=== PATIENT | female | born 1945 | race Caucasian/White ===

== ENCOUNTER → 2022-01-21 13:11 | Outpatient (CLI) | payer MEDICARE, OTHER, SELFPAY ==
[2022-01-21 13:59] LABS: INR 3.4 (0.9-1.3); Prothrombin Time 39.4 SECONDS (10.1-12.7)
== END ==
PROVIDERS: Referring Provider Internal Medicine; Visit Provider Internal Medicine
DX: I48.11 Longstanding persistent atrial fibrillation (principal); I26.99 Other pulmonary embolism without acute cor pulmonale
CPT/HCPCS: 36415; 85610

== ENCOUNTER → 2022-02-17 15:36 | Outpatient (CLI) | payer MEDICARE, OTHER, SELFPAY ==
[2022-02-17 16:57] LABS: INR 3.2 (0.9-1.3); Prothrombin Time 36.9 SECONDS (10.1-12.7)
== END ==
PROVIDERS: PCP Internal Medicine; Referring Provider Internal Medicine; Visit Provider Internal Medicine
DX: I48.11 Longstanding persistent atrial fibrillation (principal); I26.99 Other pulmonary embolism without acute cor pulmonale
CPT/HCPCS: 36415; 85610

== ENCOUNTER 2022-09-14 11:52 | Inpatient (IN) | payer MEDICARE, OTHER, MEDICAID, SELFPAY ==
[2022-09-14] VITALS (12 sets, daily range): BP systolic 125–180; BP diastolic 58–80; PULSE 60–79; RESP 18–23; TEMP 36.1–36.6; O2SAT 94–97; BMI 29.9; BMI 29.1
--- NOTE | 2022-09-14 12:14 | DI.RAD.S_ITS ---
PROCEDURE: XR CHEST 1V INDICATIONS: Flu like symptoms TECHNIQUE: One view of the chest was acquired. COMPARISON: [facility], CR, XR CHEST 2 VIEWS, 07/21/2022, 17:52. [facility], CT, CT CERVICAL SPINE WO CON, 09/14/2022, 13:01. [facility], CR, XR CHEST 1 VIEW, 07/06/2020, 16:29. FINDINGS: Surgical changes and devices: None. Lungs and pleura: Lung volumes are low. There are diffuse interstitial radiopacities bilaterally. There may be consolidative radiopacities at the left lung base posterior to the cardiac shadow. No pleural effusion or pneumothorax. Mediastinum: Mediastinal contours appear normal. Heart size is mildly enlarged. Bones and chest wall: No suspicious bony lesions. Overlying soft tissues appear unremarkable. IMPRESSION: Diffuse interstitial radiopacities and cardiomegaly suggesting pulmonary edema. Questionable consolidation at the left lung base. Dictated by: Maggy Mercado M.D. on 09/14/2022 at 13:09 Approved by: Maggy Mercado M.D. on 09/14/2022 at 13:10
--- NOTE | 2022-09-14 12:15 | DI.RAD.S_ITS ---
PROCEDURE: XR HIP W PEL IF DONE LT 2V INDICATIONS: fall on thinners TECHNIQUE: AP pelvis with lateral view(s) of the left hip(s). COMPARISON: [facility], CR, XR FEMUR LT MIN 2V, 09/14/2022, 12:17. FINDINGS: Bones: There is questionable cortical irregularity along the anterior aspect of the left femoral neck visualized on the cross-table view. There is limited visualization of the femoral neck on the AP view. The more inferior left femoral fracture is not characterized on this study. Right hip arthroplasty is grossly intact. Soft tissues: The visualized bowel gas pattern is normal. No suspicious soft tissue calcifications. IMPRESSION: Poor characterization of the left femoral neck. Questionable cortical irregularity on the cross-table view. Fracture cannot be excluded. If further characterization is warranted, consider additional views or CT of the pelvis. Dictated by: Maggy Mercado M.D. on 09/14/2022 at 13:10 Approved by: Maggy Mercado M.D. on 09/14/2022 at 13:12
--- NOTE | 2022-09-14 12:15 | DI.CT.S_ITS ---
PROCEDURE: CT HEAD/BRAIN WO CON INDICATIONS: fall on thinners TECHNIQUE: Noncontrast 4.5 mm thick angled axial sections acquired from the foramen magnum to the vertex, with coronal and sagittal reformats. For radiation dose reduction, the following was used: automated exposure control, adjustment of mA and/or kV according to patient size. COMPARISON: None. FINDINGS: Image quality: Excellent. CSF spaces: Basal cisterns are patent. No extra-axial fluid collections. The ventricles are symmetric in size and shape. Brain: No intracranial bleeds or masses. There is cerebral volume loss for age, with resultant ventricular and sulcal prominence. There are periventricular and deep white matter chronic small vessel ischemic changes. Low attenuation is present in the right frontal lobe consistent with prior infarction/trauma. There is intracranial internal carotid artery atherosclerosis. Skull and face: Calvarium and visualized facial bones appear intact, without suspicious lesions. Sinuses: Visualized sinuses and mastoids are clear. IMPRESSION: 1. No acute intracranial process. 2. Moderate atrophy and chronic microvascular ischemic changes. Dictated by: Kasia Garza M.D. on 09/14/2022 at 13:12 Approved by: Kasia Garza M.D. on 09/14/2022 at 13:14
--- NOTE | 2022-09-14 12:15 | DI.CT.S_ITS ---
PROCEDURE: CT CERVICAL SPINE WO CON INDICATIONS: fall on thinners TECHNIQUE: Noncontrast 3 mm thick sections acquired from the skull base to the T4 level. Sagittal and coronal reformats were then constructed. For radiation dose reduction, the following was used: automated exposure control, adjustment of mA and/or kV according to patient size. COMPARISON: None. FINDINGS: Image quality: Excellent. Bones: No fractures or dislocations. Visualized superior ribs are intact. There is trace retrolisthesis of C5 on C6, trace anterolisthesis of C7 on T1. There is severe disc space narrowing at C4-5, C5-6 and C6-7. Anterior osteophytes are present. Multilevel uncovertebral arthropathy is present. Soft tissues: Prevertebral soft tissues are normal in thickness. No paravertebral hematomas. No apical pneumothoraces. IMPRESSION: Multilevel degenerative changes without visualized fracture. Dictated by: Kasia Garza M.D. on 09/14/2022 at 13:14 Approved by: Kasia Garza M.D. on 09/14/2022 at 13:16
--- NOTE | 2022-09-14 12:18 | ED_ITS ---
HPI - Fall General Chief Complaint: Fall Stated Complaint: GLF, mod trauma Time Seen by Provider: 09/14/22 12:10 Source: patient and EMS Mode of arrival: EMS Limitations: no limitations History of Present Illness HPI Narrative: This is a 77-year-old female with history of benign carcinoid tumor of the lung, AFib, diabetes, hypertension prior strokes, anticoagulated on warfarin. Patient states she was getting dressed today she is doing to make things at once and had her socks on slipped and fell backwards striking back of her head on a table and landing on her left hip. Patient states she is pain in her left she denies headache currently, no neck pain, no back pain, no chest pain or shortness of breath. She denies any nausea or vomiting. Denies any loss consciousness. She is chronic urinary incontinence and sometimes retention. Patient states chronic diarrhea. No new changes to her stool. No new changes to her urine. Patient denies numbness or tingling in her extremities. She states she received pain medication EN route which was helpful. She has had hip replacement and a cardiac stent no allergies reported. Former smoker, occasional alcohol, no illicit. She is accompanied by her son who augments her history. Related Data Home Medications Medication Instructions Recorded Confirmed [place] 3-6-9 1,200 mg PO BEDTIME 09/14/22 09/14/22 acetaminophen 500 mg capsule 500 mg PO DAILY 09/14/22 09/14/22 acidophilus 100 million 2 cap PO BID 09/14/22 09/14/22 cell-pectin, citrus 10 mg capsule amlodipine 5 mg tablet (Norvasc) 7.5 mg PO BEDTIME 09/14/22 09/14/22 aripiprazole 10 mg tablet (Abilify) 10 mg PO BEDTIME 09/14/22 09/14/22 atorvastatin 40 mg tablet (Lipitor) 40 mg PO BEDTIME 09/14/22 09/14/22 biotin 10,000 mcg capsule 10,000 mcg PO BEDTIME 09/14/22 09/14/22 calcium carb-vit D3-minerals 600 1 tab PO DAILY 09/14/22 09/14/22 mg calcium-400 unit tablet cholecalciferol (vitamin D3) 50 50 mcg PO DAILY 09/14/22 09/14/22 mcg (2,000 unit) tablet cranberry extract 250 mg tablet 500 mg PO DAILY 09/14/22 09/14/22 d-mannose 500 mg capsule 1,000 mg PO BID 09/14/22 09/14/22 dextromethorphan-guaifenesin 10 1 tab-cap PO BID PRN Cough 09/14/22 09/14/22 mg-200 mg capsule (Coricidin HBP Chest Congestion-Cough) diclofenac sodium 1 % topical gel 2 g topical QID PRN Pain (Scale 09/14/22 09/14/22 (Voltaren Arthritis Pain) Score 4-6) donepezil 10 mg tablet (Aricept) 10 mg PO BEDTIME 09/14/22 09/14/22 estradiol 0.01% (0.1 mg/gram) 1 g vaginal 3XW 09/14/22 09/14/22 vaginal cream (Estrace) glucosamine-chondroitin 250 mg-200 1 tab PO DAILY 09/14/22 09/14/22 mg tablet (Osteo Bi-Flex) guaifenesin 600 mg tablet, 600 mg PO BID PRN Cough 09/14/22 09/14/22 extended release 12 hr (Mucinex) hydrocodone 5 mg-acetaminophen 325 1 tab PO Q8H PRN Pain, Moderate 09/14/22 09/14/22 mg tablet lisinopril 10 mg tablet (Zestril) 10 mg PO BEDTIME 09/14/22 09/14/22 lisinopril 10 mg tablet (Zestril) 20 mg PO DAILY 09/14/22 09/14/22 magnesium sulfate (bulk) 100 % 1 applic miscellaneous 3XW PRN 09/14/22 09/14/22 crystals (Epsom Salt) Pain (Scale Score 4-6) melatonin 3 mg capsule 3 mg PO BEDTIME 09/14/22 09/14/22 melatonin 5 mg capsule 5 mg PO BEDTIME 09/14/22 09/14/22 metoprolol succinate 25 mg 25 mg PO DAILY 09/14/22 09/14/22 tablet,extended release 24 hr (Toprol XL) multivitamin 1 tab PO DAILY 09/14/22 09/14/22 phenyleph-shark liver 1 applic topical Q6H PRN Itching 09/14/22 09/14/22 iqm-grdxfe-tca rectal cream polyethylene glycol 3350 17 gram 17 g PO DAILY PRN Constipation 09/14/22 09/14/22 oral powder packet (Miralax) quetiapine 300 mg tablet (Seroquel) 300 mg PO BEDTIME 09/14/22 09/14/22 sennosides 8.6 mg tablet (Senokot) 8.6 mg PO DAILY PRN Constipation 09/14/22 09/14/22 tea tree oil 100 % topical 1 ea topical BID 09/14/22 09/14/22 topiramate 100 mg tablet (Topamax) 100 mg PO BEDTIME 09/14/22 09/14/22 turmeric 400 mg capsule 2,000 mg PO DAILY 09/14/22 09/14/22 warfarin 2.5 mg tablet 2.5 mg PO WEEKLY 09/14/22 09/14/22 warfarin 5 mg tablet 5 mg PO USEASDIRECTD 09/14/22 09/14/22 Allergies Allergy/AdvReac Type Severity Reaction Status Date / Time No Known Drug Allergies Allergy Verified 09/14/22 12:03 Review of Systems Review of Systems ROS Unobtainable: All systems reviewed & are unremarkable except as noted in HPI and below Patient History Social History household members: other Smoking Status: Former smoker alcohol intake: current Smoking Status: Former smoker alcohol intake frequency: 0-2 drinks per day Substance Use Type: does not use Exam Narrative Exam Narrative: GEN: Patient appears in mild distress. HEAD: No evidence of trauma, no raccoon/[place] sign. NECK: Nontender, painless range of motion, trachea midline Positive for Nexus criteria, no midline line tenderness, positive for distracting injury, no altered mental status, neuro deficit, recent EtOH. EYES: PERRLA, EOMI ENT: External inspection normal, trachea is midline, TM's are normal no hemotypanum, Nares are clear, no septal hematoma, no dental or oral injury, airway is normal and with normal occlusion, No bony tenderness RESP: Chest is nontender and has symmetric movement, no ecchymosis, breath sounds are normal no crackles, wheezes or rales CVS: Heart sounds are normal, no murmur noted, No JVD. ABG/GI: Nontender, soft, normal bowel sounds, no distention, no organomegaly, pelvic rock is negative NEURO: Oriented AOx3, neuro is grossly intact, sensation and motor is normal all 4 extremities moving, cranial nerves II through XII are intact, GCS is 15 PSYCH: Normal mood and affect SKIN: Intact, warm and dry, no crepitus and without decubitus BACK: No CVA tenderness, no vertebral tenderness, no step-off's, no crepitus EXT: atraumatic except for left hip is obviously shortened and foot externally rotated, lower left leg is nontender to palpation with no other deformity or bony tenderness. Patient does not have any bony tenderness to the upper extremities or right lower extremity. Hips are nontender, no pedal edema, normal color and temperature, normal range of motion of extremities with normal tendon exam, 2+ pulses in all four extremities Initial Vital Signs Initial Vital Signs: Vital Signs Temperature 98 F 09/14/22 12:03 Pulse Rate 60 09/14/22 12:03 Respiratory Rate 18 09/14/22 12:03 Blood Pressure 125/58 L 09/14/22 12:03 Pulse Oximetry 94 09/14/22 12:03 Oxygen Delivery Method 09/14/22 12:03 Scores GCS Nba coma scale eye opening: Spontaneous Nba coma scale verbal response: Orientated [place] coma scale motor response: Obey commands [place] coma scale total score: 15 Nexus Score for C-Spine Focal Neurologic deficit present: No Midline spinal tenderness present: No Altered level of conciousness present: No Intoxication present: No Distracting Injury Present: Yes Nexus Criteria for C-spine: 1 Course Orders Ordered: ED Orders 09/14/22 12:00 Complete Blood Count AUTO DIFF Stat Lactate (Lactic Acid) Stat Partial Thromboplastin Time Stat Prothrombin Time INR Stat 09/14/22 12:14 XR chest 1V Stat 09/14/22 12:15 CT cervical spine wo con Stat CT head/brain wo con Stat XR hip w pel if done LT 2V Stat 09/14/22 12:47 XR femur LT min 2V Stat 09/14/22 13:00 A1C [Hemoglobin A1C% w Est Avg Glu] Urgent 09/14/22 13:15 COVID19 -Nasal RAPID/Pre-Proc Stat 09/14/22 13:22 Type and Screen Stat 09/14/22 13:50 Comprehensive Metabolic Panel Stat 09/14/22 17:52 Urinalysis and Microscopic Stat 09/15/22 05:00 BMP [Basic Metabolic Panel] DAILY CBC Auto Diff [Complete Blood Count AUTO DIFF] DAILY Prothrombin Time INR DAILY 09/16/22 05:00 BMP [Basic Metabolic Panel] DAILY CBC Auto Diff [Complete Blood Count AUTO DIFF] DAILY Prothrombin Time INR DAILY 09/17/22 05:00 BMP [Basic Metabolic Panel] DAILY CBC Auto Diff [Complete Blood Count AUTO DIFF] DAILY Prothrombin Time INR DAILY 09/18/22 05:00 Prothrombin Time INR DAILY 09/19/22 05:00 Prothrombin Time INR DAILY Acetaminophen (Acetaminophen 325 Mg Tablet) 650 mg PO Q6H PRN PRN Reason: Fever/Mild Pain (1-3) Amlodipine Besylate (Amlodipine 5 Mg Tablet) 7.5 mg PO BEDTIME [facility] Aripiprazole (Aripiprazole 10 Mg Tablet) 10 mg PO BEDTIME [place] Atorvastatin Calcium (Atorvastatin 20 Mg Tablet) 40 mg PO BEDTIME [place] Bisacodyl (Bisacodyl 5 Mg Tablet) 10 mg PO DAILY PRN PRN Reason: Constipation Donepezil HCl (Donepezil 5 Mg Tablet) 10 mg PO BEDTIME [place] Hydromorphone HCl (Hydromorphone 0.5 Mg Inj) 0.5 mg IV Q4H PRN PRN Reason: Pain, Moderate (4-6) Last Admin: 09/14/22 15:32 Dose: 0.5 mg Documented By: ALMA Melatonin (Melatonin 3 Mg Tablet) 3 mg PO BEDTIME [facility] Metoprolol Succinate (Metoprolol Er 25 Mg Tablet) 25 mg PO DAILY [facility] Naloxone HCl (Naloxone 0.4 Mg/Ml Vial) 0.2 mg IV Q2MIN PRN PRN Reason: Opiate Reversal Oxycodone HCl (Oxycodone Ir 5 Mg Tablet) 5 mg PO Q4HR PRN PRN Reason: Pain, Moderate (4-6) Last Admin: 09/14/22 17:34 Dose: 5 mg Documented By: ALMA Polyethylene Glycol (Polyethylene Glycol 3350 17 Gm Powd.Pack) 17 gm PO DAILY PRN PRN Reason: Constipation Quetiapine Fumarate (Quetiapine 100 Mg Tablet) 300 mg PO BEDTIME [place] Sennosides (Sennosides 8.6 Mg Tablet) 8.6 mg PO BID PRN PRN Reason: Constipation Topiramate (Topiramate 100 Mg Tablet) 100 mg PO BEDTIME [place] Discontinued Medications Fentanyl (Fentanyl 100 Mcg/2 Ml Inj) 50 mcg IV Q1H PRN PRN Reason: Pain, Severe (7-10) Last Admin: 09/14/22 13:12 Dose: 50 mcg Documented By: RB Melatonin (Melatonin 3 Mg Tablet) 6 mg PO BEDTIME PRN PRN Reason: Insomnia Oxycodone HCl (Oxycodone Ir 10 Mg Tablet) 10 mg PO Q4HR PRN PRN Reason: Pain, Severe (7-10) Consultations Consultation #1: Dr. Whitt, orthopedic surgery: Reviewed patient is on warfarin INR is 2.8, plan for surgery probably tomorrow. Patient will need surgical repair likely tomorrow. Can do [place] traction if we have device available. Discussed patient is currently neurovascularly intact intact Consultation #2: Dr. Clements, hospitalist: Will speak with Dr. Whitt to see if he is accepting as it beating physician or consulting. Time: 13:24 Vital Signs Vital signs: Vital Signs - 8 hr 09/14/22 12:03 09/14/22 12:10 09/14/22 13:02 Temperature 98 F Pulse Rate 60 63 71 Respiratory Rate 18 Blood Pressure 125/58 L Pulse Oximetry 94 96 94 Oxygen Delivery Method Room Air 09/14/22 13:26 09/14/22 13:26 09/14/22 13:30 Temperature Pulse Rate 79 Respiratory Rate Blood Pressure 176/80 H 170/76 H Pulse Oximetry 96 Oxygen Delivery Method 09/14/22 13:30 09/14/22 13:35 09/14/22 13:35 Temperature Pulse Rate 78 73 Respiratory Rate 19 23 Blood Pressure 155/68 H Pulse Oximetry 96 96 Oxygen Delivery Method 09/14/22 13:40 09/14/22 13:40 09/14/22 13:45 Temperature Pulse Rate 67 69 Respiratory Rate 18 19 Blood Pressure 156/72 H Pulse Oximetry 95 96 Oxygen Delivery Method 09/14/22 13:45 Temperature Pulse Rate Respiratory Rate Blood Pressure 133/73 Pulse Oximetry Oxygen Delivery Method MDM - Fall Lab Data 09/14/22 12:00 09/14/22 12:00 Labs: Lab Results 09/14/22 09/14/22 09/14/22 Range/Units 12:00 12:00 12:00 WBC 4.8 (4.5-11.0) X10^3/uL RBC 4.40 (4.0-5.2) X10^6/uL Hgb 13.0 (12.0-16.0) g/dL Hct 40.1 (36-46) % MCV 91.3 (80-100) fL MCH 29.6 (26-34) PG MCHC 32.5 (30-36) % RDW 15.1 H (11.6-14.8) % Plt Count 169 (150-400) X10^3/uL Neut % (Auto) 75.1 H (50-75) % Lymph % (Auto) 16.8 L (25-40) % [place] % (Auto) 6.0 (3-14) % Eos % (Auto) 1.2 L (2-4) % Baso % (Auto) 0.9 (0-2) % Neut # (Auto) 3600 (6271-5252) /uL Lymph # (Auto) 800 L (0152-5679) /uL [place] # (Auto) 300 (0-900) /uL Eos # (Auto) 100 (0-450) /uL Baso # (Auto) 0 (0-100) /uL PT 32.7 H (10.1-12.7) SECONDS INR 2.8 H (0.9-1.3) APTT 33 (26-36) SECONDS Sodium (137-145) mmol/L Potassium (3.4-5.1) mmol/L Chloride (98-107) mmol/L Carbon Dioxide (22-32) mmol/L BUN (7-17) mg/dL Creatinine (0.52-1.04) mg/dL Estimated GFR (>60) mL/min BUN/Creatinine Ratio (6-22) Glucose (80-110) mg/dL Hemoglobin A1c (4.0-6.0) % Lactate 1.7 (0.7-2.1) mmol/L Calcium (8.4-10.2) mg/dL Total Bilirubin (0.2-1.3) mg/dL AST (14-36) IU/L ALT (<35) IU/L Alkaline Phosphatase (38-126) U/L Total Protein (6.3-8.2) g/dL Albumin (3.5-5.0) g/dL Globulin (1.7-4.1) g/dL Albumin/Globulin Ratio (1.0-2.8) SARS-CoV-2 (PCR) (Negative) Blood Type Antibody Screen 09/14/22 09/14/22 09/14/22 Range/Units 13:00 13:15 13:22 WBC (4.5-11.0) X10^3/uL RBC (4.0-5.2) X10^6/uL Hgb (12.0-16.0) g/dL Hct (36-46) % MCV (80-100) fL MCH (26-34) PG MCHC (30-36) % RDW (11.6-14.8) % Plt Count (150-400) X10^3/uL Neut % (Auto) (50-75) % Lymph % (Auto) (25-40) % [place] % (Auto) (3-14) % Eos % (Auto) (2-4) % Baso % (Auto) (0-2) % Neut # (Auto) (7764-9897) /uL Lymph # (Auto) (0331-9460) /uL [place] # (Auto) (0-900) /uL Eos # (Auto) (0-450) /uL Baso # (Auto) (0-100) /uL PT (10.1-12.7) SECONDS INR (0.9-1.3) APTT (26-36) SECONDS Sodium (137-145) mmol/L Potassium (3.4-5.1) mmol/L Chloride (98-107) mmol/L Carbon Dioxide (22-32) mmol/L BUN (7-17) mg/dL Creatinine (0.52-1.04) mg/dL Estimated GFR (>60) mL/min BUN/Creatinine Ratio (6-22) Glucose (80-110) mg/dL Hemoglobin A1c 5.6 (4.0-6.0) % Lactate (0.7-2.1) mmol/L Calcium (8.4-10.2) mg/dL Total Bilirubin (0.2-1.3) mg/dL AST (14-36) IU/L ALT (<35) IU/L Alkaline Phosphatase (38-126) U/L Total Protein (6.3-8.2) g/dL Albumin (3.5-5.0) g/dL Globulin (1.7-4.1) g/dL Albumin/Globulin Ratio (1.0-2.8) SARS-CoV-2 (PCR) Negative (Negative) Blood Type O Positive Antibody Screen Negative 09/14/22 Range/Units 13:50 WBC (4.5-11.0) X10^3/uL RBC (4.0-5.2) X10^6/uL Hgb (12.0-16.0) g/dL Hct (36-46) % MCV (80-100) fL MCH (26-34) PG MCHC (30-36) % RDW (11.6-14.8) % Plt Count (150-400) X10^3/uL Neut % (Auto) (50-75) % Lymph % (Auto) (25-40) % [place] % (Auto) (3-14) % Eos % (Auto) (2-4) % Baso % (Auto) (0-2) % Neut # (Auto) (2918-9107) /uL Lymph # (Auto) (6399-5153) /uL [place] # (Auto) (0-900) /uL Eos # (Auto) (0-450) /uL Baso # (Auto) (0-100) /uL PT (10.1-12.7) SECONDS INR (0.9-1.3) APTT (26-36) SECONDS Sodium 141 (137-145) mmol/L Potassium 5.0 (3.4-5.1) mmol/L Chloride 110 H (98-107) mmol/L Carbon Dioxide 24 (22-32) mmol/L BUN 22 H (7-17) mg/dL Creatinine 0.92 (0.52-1.04) mg/dL Estimated GFR > 60 (>60) mL/min BUN/Creatinine Ratio 23.9 H (6-22) Glucose 111 H (80-110) mg/dL Hemoglobin A1c (4.0-6.0) % Lactate (0.7-2.1) mmol/L Calcium 8.7 (8.4-10.2) mg/dL Total Bilirubin 0.6 (0.2-1.3) mg/dL AST 25 (14-36) IU/L ALT 20 (<35) IU/L Alkaline Phosphatase 110 (38-126) U/L Total Protein 6.6 (6.3-8.2) g/dL Albumin 3.6 (3.5-5.0) g/dL Globulin 3.0 (1.7-4.1) g/dL Albumin/Globulin Ratio 1.2 (1.0-2.8) SARS-CoV-2 (PCR) (Negative) Blood Type Antibody Screen Imaging Data CT scan - head: Radiologist's Impression: [address] [address] [address] Scan Report Signed Patient: Saleem Graham MR#: [id number] : 1945 Acct:[id number] Age/Sex: 77 / F Date of Service: 09/14/22 Loc: ED Accession Number: [id number] ?? Procedure: CT head/brain wo con Ordering Provider: Patricia Stanford D.O. PROCEDURE:? CT HEAD/BRAIN WO CON ? INDICATIONS:? fall on thinners ? TECHNIQUE:? Noncontrast 4.5 mm thick angled axial sections acquired from the foramen magnum to the vertex, with coronal and sagittal reformats.? For radiation dose reduction, the following was used:? automated exposure control, adjustment of mA and/or kV according to patient size.? ? COMPARISON:? None. ? FINDINGS:? Image quality:? Excellent.? ? CSF spaces:? Basal cisterns are patent.? No extra-axial fluid collections.? The ventricles are symmetric in size and shape.? ? Brain:? No intracranial bleeds or masses.? There is cerebral volume loss for age, with resultant ventricular and sulcal prominence.? There are periventricular and deep white matter chronic small vessel ischemic changes.? Low attenuation is present in the right frontal lobe consistent with prior infarction/trauma.? There is intracranial internal carotid artery atherosclerosis.? ? Skull and face:? Calvarium and visualized facial bones appear intact, without suspicious lesions.? ? Sinuses:? Visualized sinuses and mastoids are clear.? ? IMPRESSION:? ? 1. No acute intracranial process. ? 2. Moderate atrophy and chronic microvascular ischemic changes. ? ? ? Dictated by: Kasia Garza M.D. on 09/14/2022 at 13:12 ? ? Approved by: Kasia Garza M.D. on 09/14/2022 at 13:14?? CT - cervical spine: Radiologist's Impression: Close Femur X-Ray (Signed) Maggy Mercado - 09/14/22 Hip X-Ray (Signed) Maggy Mercado - 09/14/[address] (Signed) Kasia Garza - 09/14/[address] (Signed) Keyon Garzaley - 09/14/22 Chest X-Ray (Signed) Maggy Mercado - 09/14/22 Launch?Image [address] [address] [address] Scan Report Signed Patient: Saleem Graham MR#: [id number] : 1945 Acct:[id number] Age/Sex: 77 / F Date of Service: 09/14/22 Loc: ED Accession Number: [id number] ?? Procedure: CT cervical spine wo con Ordering Provider: Patricia Stanford D.O. PROCEDURE:? CT CERVICAL SPINE WO CON ? INDICATIONS:? fall on thinners ? TECHNIQUE:? Noncontrast 3 mm thick sections acquired from the skull base to the T4 level.? Sagittal and coronal reformats were then constructed.? For radiation dose reduction, the following was used:? automated exposure control, adjustment of mA and/or kV according to patient size.? ? COMPARISON:? None. ? FINDINGS:? Image quality:? Excellent.? ? Bones:? No fractures or dislocations.? Visualized superior ribs are intact.? T here is trace retrolisthesis of C5 on C6, trace anterolisthesis of C7 on T1.? There is severe disc space narrowing at C4-5, C5-6 and C6-7.? Anterior osteophytes are present.? Multilevel uncovertebral arthropathy is present. ? Soft tissues:? Prevertebral soft tissues are normal in thickness.? No para vertebral hematomas.? No apical pneumothoraces.? ? ? IMPRESSION:? ? Multilevel degenerative changes without visualized fracture. ? Dictated by: Kasia Garza M.D. on 09/14/2022 at 13:14 ? ? Approved by: Kasia Garza M.D. on 09/14/2022 at 13:16?? Chest x-ray: Radiologist's Impression: [address] [address] XRay Report Signed Patient: Saleem Graham MR#: [id number] : 1945 Acct:[id number] Age/Sex: 77 / F Date of Service: 09/14/22 Loc: ED Accession Number: [id number] ?? Procedure: XR chest 1V Ordering Provider: Patricia Stanford D.O. PROCEDURE:? XR CHEST 1V ? INDICATIONS:? Flu like symptoms ? TECHNIQUE:? One view of the chest was acquired.? ? COMPARISON:? [facility], CR, XR CHEST 2 VIEWS, 07/21/2022, 17:52.? [facility], CT, CT CERVICAL SPINE WO CON, 09/14/2022, 13:01.? [facility], CR, XR CHEST 1 VIEW, 07/06/2020, 16:29. ? FINDINGS:? ? Surgical changes and devices:? None.? ? Lungs and pleura:? Lung volumes are low.? There are diffuse interstitial radiopacities bilaterally.? There may be consolidative radiopacities at the left lung base posterior to the cardiac shadow.? No pleural effusion or pneumothorax. ? Mediastinum:? Mediastinal contours appear normal.? Heart size is mildly enlarged. ? Bones and chest wall:? No suspicious bony lesions.? Overlying soft tissues appear unremarkable.? ? IMPRESSION:? Diffuse interstitial radiopacities and cardiomegaly suggesting pulmonary edema. Questionable consolidation at the left lung base.? ? Dictated by: Maggy Mercado M.D. on 09/14/2022 at 13:09 ? ? Approved by: Maggy Mercado M.D. on 09/14/2022 at 13:10?? Extremity x-ray #1: Radiologist's Impression: [address] [address] XRay Report Signed Patient: Saleem Graham MR#: [id number] : 1945 Acct:[id number] Age/Sex: 77 / F Date of Service: 09/14/22 Loc: ED Accession Number: [id number] ?? Procedure: XR hip w pel if done LT 2V Ordering Provider: Patricia Stanford D.O. PROCEDURE:? XR HIP W PEL IF DONE LT 2V ? INDICATIONS:? fall on thinners ? TECHNIQUE:? AP pelvis with lateral view(s) of the left hip(s).? ? COMPARISON:? [facility], CR, XR FEMUR LT MIN 2V, 09/14/2022, 12:17. ? FINDINGS:? ? Bones:? There is questionable cortical irregularity along the anterior aspect of the left femoral neck visualized on the cross-table view.? There is limited visualization of the femoral neck on the AP view.? The more inferior left femoral fracture is not characterized on this study.? Right hip arthroplasty is grossly intact. ? Soft tissues:? The visualized bowel gas pattern is normal.? No suspicious soft tissue calcifications.? ? ? IMPRESSION:? Poor characterization of the left femoral neck.? Questionable cortical irregularity on the cross-table view.? Fracture cannot be excluded.? If further characterization is warranted, consider additional views or CT of the pelvis. ? Dictated by: Maggy Mercado M.D. on 09/14/2022 at 13:10 ? ? Approved by: Maggy Mercado M.D. on 09/14/2022 at 13:12?? Extremity x-ray #2: Radiologist's Impression: [place] [address] XRay Report Signed Patient: Saleem Graham MR#: [id number] : 1945 Acct:[id number] Age/Sex: 77 / F Date of Service: 09/14/22 Loc: ED Accession Number: [id number] ?? Procedure: XR femur LT min 2V Ordering Provider: Patricia Stanford D.O. PROCEDURE:? XR FEMUR LT MIN 2V ? INDICATIONS:? Fall with leg shortening. ? TECHNIQUE:? 2 views of the femur were acquired.? ? COMPARISON:? None. ? FINDINGS:? ? Bones:? There is an angulated, displaced, impacted left femoral fracture.? The distal fracture fragment is displaced approximately 9 cm with respect to the proximal fracture fragment.? There is approximately 37? angulation at the apex of the fracture. ? Soft tissues:? No suspicious soft tissue calcifications or masses.? ? IMPRESSION:? Angulated, displaced, impacted left femoral diaphyseal fracture. ? ? Dictated by: Maggy Mercado M.D. on 09/14/2022 at 13:13 ? ? Approved by: Maggy Mercado M.D. on 09/14/2022 at 13:13?? [facility] Narrative Medical decision making narrative: This is a 77-year-old female with what she describes as a mechanical ground level fall. Left lower extremity is currently shortened and rotated. Patient is on warfarin states she did hit her head so head CT C-spine were obtained she likely has distracting injury. These are negative, hip x-ray questionable but patient clearly has a femur fracture that is displaced. Patient is neurova scularly intact she has plantar flexion extension. 2+ dorsalis pedis pulse with sensation to light touch in her lower extremity on the left side. Patient's labs show hemoglobin of 13, INR is elevated at 2.8 secondary her warfarin. Patient was type and screened. Patient's creatinine is normal at 0.92 with chloride of 110 BUN 22 sodium 141 potassium of 5, glucose is 111 with otherwise normal LFTs. Patient is COVID negative. Patient does not appear to have any other injuries appreciated. Spoke with Orthopedic surgery, Dr. Whitt who accepts for admission likely OR tomorrow secondary to elevated INR, discussed if we have traction available can place. After discussion with nursing staff [facility] nursing staff often remove this if patient is uncomfortable so decision was made not to put it in place if they are going to remove it later today as patient does not have surgery until tomorrow. Also spoke with the hospitalist Dr. Clements who accepts for inpatient admission for medical management with consultation by Orthopedic surgery. Discharge Plan Departure Patient Disposition: Admitted As Inpatient Clinical Impression: Fall, Elevated INR Closed femur fracture Qualifiers: Encounter type: initial encounter Fracture alignment: displaced Laterality: left Admit Date/Time: 09/14/22 13:50 Admit Provider: Yosvany Clements
[2022-09-14 12:24] LABS: Add Manual Diff / Slide Review NO; Basophils Absolute Auto 0 /uL (0-100); Basophils Percent Auto 0.9 % (0-2); Eosinophils Absolute Auto 100 /uL (0-450); Eosinophils Percent Auto 1.2 % (2-4); Hematocrit 40.1 % (36-46); Lymphocytes Absolute Auto 800 /uL (1100-4500); Lymphocytes Percent Auto 16.8 % (25-40); Mean Corpuscular HGB Conc 32.5 % (30-36); Mean Corpuscular Hemoglobin 29.6 PG (26-34); Mean Corpuscular Volume 91.3 fL (80-100); Monocytes Absolute Auto 300 /uL (0-900); Neutrophils Absolute Auto 3600 /uL (1500-7000); Neutrophils Percent Auto 75.1 % (50-75); Platelet Count 169 X10^3/uL (150-400); Red Cell Distribution Width 15.1 % (11.6-14.8); White Blood Cell Count 4.8 X10^3/uL (4.5-11.0)
[2022-09-14 12:33] LABS: INR 2.8 (0.9-1.3); PTT Partial Thromboplastin Tim 33 SECONDS (26-36); Prothrombin Time 32.7 SECONDS (10.1-12.7)
[2022-09-14 12:34] LABS: Lactate (Lactic Acid) 1.7 mmol/L (0.7-2.1)
--- NOTE | 2022-09-14 12:47 | DI.RAD.S_ITS ---
PROCEDURE: XR FEMUR LT MIN 2V INDICATIONS: Fall with leg shortening. TECHNIQUE: 2 views of the femur were acquired. COMPARISON: None. FINDINGS: Bones: There is an angulated, displaced, impacted left femoral fracture. The distal fracture fragment is displaced approximately 9 cm with respect to the proximal fracture fragment. There is approximately 37? angulation at the apex of the fracture. Soft tissues: No suspicious soft tissue calcifications or masses. IMPRESSION: Angulated, displaced, impacted left femoral diaphyseal fracture. Dictated by: Maggy Mercado M.D. on 09/14/2022 at 13:13 Approved by: Maggy Mercado M.D. on 09/14/2022 at 13:13
[2022-09-14] MEDS: fentaNYL 100 MCG/2 ML INJ 50 MCG IV (13:12)
--- NOTE | 2022-09-14 13:29 | PM.HP.1 ---
History of Present Illness History of Present Illness Date Patient Seen: 09/14/22 Chief complaint: GLF, mod trauma Narrative: Chen Graham is a 77-year-old female with past medical history of atrial fibrillation on warfarin who presents with left femur fracture following ground level fall. Patient states she was wearing slippery socks while doing laudry and slipped on the floor, landing on her left side. Is now having excruciating pain. XR of right hip in ED showed left displaced femur fracture. Patient's INR 2.8 so ortho deferred surgery until likely one more day. Patient currently states her pain is well controlled after pain medication. She has no other complaints. Denies CP, SOB, NV, abd pain or diarrhea. Patient History Family & Social History Safety & Behavioral: Feels Safe in Current Yes Environment Been Physically Hurt or No Threatened By a Person Tobacco & Substance use: Smoking Status Former smoker alcohol intake frequency 0-2 drinks per day Substance Use Type does not use Meds Home Medications and Allergies Home Medications Medication Instructions Recorded Confirmed Type [place] 3-6-9 1,200 mg PO BEDTIME 09/14/22 09/14/22 History acetaminophen 500 mg capsule 500 mg PO DAILY 09/14/22 09/14/22 History acidophilus 100 million 2 cap PO BID 09/14/22 09/14/22 History cell-pectin, citrus 10 mg capsule amlodipine 5 mg tablet (Norvasc) 7.5 mg PO BEDTIME 09/14/22 09/14/22 History aripiprazole 10 mg tablet (Abilify) 10 mg PO BEDTIME 09/14/22 09/14/22 History atorvastatin 40 mg tablet (Lipitor) 40 mg PO BEDTIME 09/14/22 09/14/22 History biotin 10,000 mcg capsule 10,000 mcg PO BEDTIME 09/14/22 09/14/22 History calcium carb-vit D3-minerals 600 1 tab PO DAILY 09/14/22 09/14/22 History mg calcium-400 unit tablet cholecalciferol (vitamin D3) 50 50 mcg PO DAILY 09/14/22 09/14/22 History mcg (2,000 unit) tablet cranberry extract 250 mg tablet 500 mg PO DAILY 09/14/22 09/14/22 History d-mannose 500 mg capsule 1,000 mg PO BID 09/14/22 09/14/22 History dextromethorphan-guaifenesin 10 1 tab-cap PO BID PRN Cough 09/14/22 09/14/22 History mg-200 mg capsule (Coricidin HBP Chest Congestion-Cough) diclofenac sodium 1 % topical gel 2 g topical QID PRN Pain (Scale 09/14/22 09/14/22 History (Voltaren Arthritis Pain) Score 4-6) donepezil 10 mg tablet (Aricept) 10 mg PO BEDTIME 09/14/22 09/14/22 History estradiol 0.01% (0.1 mg/gram) 1 g vaginal 3XW 09/14/22 09/14/22 History vaginal cream (Estrace) glucosamine-chondroitin 250 mg-200 1 tab PO DAILY 09/14/22 09/14/22 History mg tablet (Osteo Bi-Flex) guaifenesin 600 mg tablet, 600 mg PO BID PRN Cough 09/14/22 09/14/22 History extended release 12 hr (Mucinex) hydrocodone 5 mg-acetaminophen 325 1 tab PO Q8H PRN Pain, Moderate 09/14/22 09/14/22 History mg tablet lisinopril 10 mg tablet (Zestril) 10 mg PO BEDTIME 09/14/22 09/14/22 History lisinopril 10 mg tablet (Zestril) 20 mg PO DAILY 09/14/22 09/14/22 History magnesium sulfate (bulk) 100 % 1 applic miscellaneous 3XW PRN 09/14/22 09/14/22 History crystals (Epsom Salt) Pain (Scale Score 4-6) melatonin 3 mg capsule 3 mg PO BEDTIME 09/14/22 09/14/22 History melatonin 5 mg capsule 5 mg PO BEDTIME 09/14/22 09/14/22 History metoprolol succinate 25 mg 25 mg PO DAILY 09/14/22 09/14/22 History tablet,extended release 24 hr (Toprol XL) multivitamin 1 tab PO DAILY 09/14/22 09/14/22 History phenyleph-shark liver 1 applic topical Q6H PRN Itching 09/14/22 09/14/22 History [id number] rectal cream polyethylene glycol 3350 17 gram 17 g PO DAILY PRN Constipation 09/14/22 09/14/22 History oral powder packet (Miralax) quetiapine 300 mg tablet (Seroquel) 300 mg PO BEDTIME 09/14/22 09/14/22 History sennosides 8.6 mg tablet (Senokot) 8.6 mg PO DAILY PRN Constipation 09/14/22 09/14/22 History tea tree oil 100 % topical 1 ea topical BID 09/14/22 09/14/22 History topiramate 100 mg tablet (Topamax) 100 mg PO BEDTIME 09/14/22 09/14/22 History turmeric 400 mg capsule 2,000 mg PO DAILY 09/14/22 09/14/22 History warfarin 2.5 mg tablet 2.5 mg PO WEEKLY 09/14/22 09/14/22 History warfarin 5 mg tablet 5 mg PO USEASDIRECTD 09/14/22 09/14/22 History Allergies Allergy/AdvReac Type Severity Reaction Status Date / Time No Known Drug Allergies Allergy Verified 09/14/22 12:03 Review of Systems Review of Systems Narrative: All other systems reviewed with the patient and are negative unless otherwise stated. Exam Vital Signs (past 8 hours): - 09/14/22 12:03 Temperature 98 F Pulse Rate 60 Respiratory Rate 18 Blood Pressure 125/58 L Pulse Oximetry 94 Oxygen Delivery Method Room Air Oxygen Delivery Method Room Air Narrative Exam Narrative: GEN: no acute distress, sleepy from pain medication HEENT: moist mucous membranes, PERRL NECK: trachea midline, no JVD CV: regular rate and rhythm, no murmurs PULM: clear bilaterally ABD: soft, nontender, nondistended, no organomegaly EXT: left leg shortened and externally rotated NEURO: awake, alert, oriented, no focal deficits Objective Labs 09/14/22 12:00 09/14/22 13:22 Labs: Laboratory Results - last 24 hr 09/14/22 09/14/22 09/14/22 12:00 12:00 12:00 WBC 4.8 RBC 4.40 Hgb 13.0 Hct 40.1 MCV 91.3 MCH 29.6 MCHC 32.5 RDW 15.1 H Plt Count 169 Neut % (Auto) 75.1 H Lymph % (Auto) 16.8 L [place] % (Auto) 6.0 Eos % (Auto) 1.2 L Baso % (Auto) 0.9 Neut # (Auto) 3600 Lymph # (Auto) 800 L [place] # (Auto) 300 Eos # (Auto) 100 Baso # (Auto) 0 PT 32.7 H INR 2.8 H APTT 33 Lactate 1.7 Assessment & Plan Assessment & Plan narrative: # ground level fall resulting in left mid-shaft displaced femur fracture -Dr. Whitt ortho consulting and will take for surgery on 09/15 -NPO at midnight -hold warfarin -oxycodone and Dilaudid as needed for pain # chronic atrial fibrillation -holding warfarin due to pending surgery -daily INR checks # bipolar disorder -continue home seroquel, abilify and topamax # HTN, chronic -continue home amlodipine, holding lisinopril due to borderline high K # HLD, chronic -continue home statin # vascular dementia -continue home donepezil Code status is DNR. COVID negative. DVT prophylaxis with SCDs. Proxy is miya Resendiz. I have reviewed home meds and used all available resources to reconcile the home meds. This patient will be admitted as inpatient and will require greater than 2 midnights of hospital time to treat left hip fracture. Time Spent With Patient Critical Care time: I spent a total of [] minutes of critical care time on this patient's care today; this time is exclusive of procedural time.
[2022-09-14 14:07] LABS: Hemoglobin A1C% w Est Avg Glu 5.6 % (4.0-6.0)
[2022-09-14 14:11] LABS: Alanine Aminotransferase 20 IU/L (<35); Albumin 3.6 g/dL (3.5-5.0); Albumin Globulin Ratio 1.2 (1.0-2.8); Alkaline Phosphatase 110 U/L (38-126); Aspartate Aminotransferase 25 IU/L (14-36); BUN Creatinine Ratio 23.9 (6-22); Bilirubin Total 0.6 mg/dL (0.2-1.3); Blood Urea Nitrogen 22 mg/dL (7-17); Calcium 8.7 mg/dL (8.4-10.2); Carbon Dioxide 24 mmol/L (22-32); Chloride 110 mmol/L (98-107); Estimated Glomerular Filt Rate > 60 mL/min (>60); Glucose 111 mg/dL (80-110); HEMOLYSIS < 15 (0-50); Sodium 141 mmol/L (137-145); Total Protein 6.6 g/dL (6.3-8.2)
[2022-09-14 14:25] LABS: COVID19 -Nasal RAPID Negative (Negative)
[2022-09-14] MEDS: HYDROMORPHONE 0.5 MG INJ IV (15:32)
--- NOTE | 2022-09-14 16:03 | PC.NURSE ---
Addendum entered by Veronica Law R.N. 09/14/22 18:55: Patient just medicated with oxycodone and she is getting sleepy. She ate 95% of her dinner and drank some tea. Son will be back later. Her son only wants her to have certain visitors. Tammie Pete, Colleen Lanier. Anyone else we need to call her son Astrid de la fuente [phone]. Original Note: Patient admitted with fx to [facility] Given 0.5mg of iv dilaudid and she states that she is feeling better. Patient refused to have a rivera catheter at this time and is using a pure wick. She states that she is usually incontinent. Fancis is alert and oriented x3, but can be forgetful. She lives in an adult family home called [facility]. Her son is her contact and POA. Friend in room with patient at this time who is a volunteer here. She is not voicing any needs or concerns at this time.
--- NOTE | 2022-09-14 17:24 | P.CONS_ITS ---
History of Present Illness Consult details Date Patient Seen: 09/14/22 Time Patient Seen: 17:25 Chief complaint: GLF, mod trauma Narrative: 77-year-old female who slipped and fell earlier today landing on her left side. Patient had quite a bit of pain and was unable to ambulate and was brought into the emergency room. Does state she hit her head but denies any loss of consciousness. Patient has atrial fibrillation is on Coumadin for that. Patient has a history of right total hip. Meds Home Medications and Allergies Home Medications Medication Instructions Recorded Confirmed Type [place] 3-6-9 1,200 mg PO BEDTIME 09/14/22 09/14/22 History acetaminophen 500 mg capsule 500 mg PO DAILY 09/14/22 09/14/22 History acidophilus 100 million 2 cap PO BID 09/14/22 09/14/22 History cell-pectin, citrus 10 mg capsule amlodipine 5 mg tablet (Norvasc) 7.5 mg PO BEDTIME 09/14/22 09/14/22 History aripiprazole 10 mg tablet (Abilify) 10 mg PO BEDTIME 09/14/22 09/14/22 History atorvastatin 40 mg tablet (Lipitor) 40 mg PO BEDTIME 09/14/22 09/14/22 History biotin 10,000 mcg capsule 10,000 mcg PO BEDTIME 09/14/22 09/14/22 History calcium carb-vit D3-minerals 600 1 tab PO DAILY 09/14/22 09/14/22 History mg calcium-400 unit tablet cholecalciferol (vitamin D3) 50 50 mcg PO DAILY 09/14/22 09/14/22 History mcg (2,000 unit) tablet cranberry extract 250 mg tablet 500 mg PO DAILY 09/14/22 09/14/22 History d-mannose 500 mg capsule 1,000 mg PO BID 09/14/22 09/14/22 History dextromethorphan-guaifenesin 10 1 tab-cap PO BID PRN Cough 09/14/22 09/14/22 History mg-200 mg capsule (Coricidin HBP Chest Congestion-Cough) diclofenac sodium 1 % topical gel 2 g topical QID PRN Pain (Scale 09/14/22 09/14/22 History (Voltaren Arthritis Pain) Score 4-6) donepezil 10 mg tablet (Aricept) 10 mg PO BEDTIME 09/14/22 09/14/22 History estradiol 0.01% (0.1 mg/gram) 1 g vaginal 3XW 09/14/22 09/14/22 History vaginal cream (Estrace) glucosamine-chondroitin 250 mg-200 1 tab PO DAILY 09/14/22 09/14/22 History mg tablet (Osteo Bi-Flex) guaifenesin 600 mg tablet, 600 mg PO BID PRN Cough 09/14/22 09/14/22 History extended release 12 hr (Mucinex) hydrocodone 5 mg-acetaminophen 325 1 tab PO Q8H PRN Pain, Moderate 09/14/22 09/14/22 History mg tablet lisinopril 10 mg tablet (Zestril) 10 mg PO BEDTIME 09/14/22 09/14/22 History lisinopril 10 mg tablet (Zestril) 20 mg PO DAILY 09/14/22 09/14/22 History magnesium sulfate (bulk) 100 % 1 applic miscellaneous 3XW PRN 09/14/22 09/14/22 History crystals (Epsom Salt) Pain (Scale Score 4-6) melatonin 3 mg capsule 3 mg PO BEDTIME 09/14/22 09/14/22 History melatonin 5 mg capsule 5 mg PO BEDTIME 09/14/22 09/14/22 History metoprolol succinate 25 mg 25 mg PO DAILY 09/14/22 09/14/22 History tablet,extended release 24 hr (Toprol XL) multivitamin 1 tab PO DAILY 09/14/22 09/14/22 History phenyleph-shark liver 1 applic topical Q6H PRN Itching 09/14/22 09/14/22 History [id number] rectal cream polyethylene glycol 3350 17 gram 17 g PO DAILY PRN Constipation 09/14/22 09/14/22 History oral powder packet (Miralax) quetiapine 300 mg tablet (Seroquel) 300 mg PO BEDTIME 09/14/22 09/14/22 History sennosides 8.6 mg tablet (Senokot) 8.6 mg PO DAILY PRN Constipation 09/14/22 09/14/22 History tea tree oil 100 % topical 1 ea topical BID 09/14/22 09/14/22 History topiramate 100 mg tablet (Topamax) 100 mg PO BEDTIME 09/14/22 09/14/22 History turmeric 400 mg capsule 2,000 mg PO DAILY 09/14/22 09/14/22 History warfarin 2.5 mg tablet 2.5 mg PO WEEKLY 09/14/22 09/14/22 History warfarin 5 mg tablet 5 mg PO USEASDIRECTD 09/14/22 09/14/22 History Allergies Allergy/AdvReac Type Severity Reaction Status Date / Time No Known Drug Allergies Allergy Verified 09/14/22 12:03 Exam Vital Signs (past 8 hours): - 09/14/22 12:03 09/14/22 12:10 09/14/22 13:02 Temperature 98 F Pulse Rate 60 63 71 Respiratory Rate 18 Blood Pressure 125/58 L Pulse Oximetry 94 96 94 Oxygen Delivery Method Room Air Oxygen Flow Rate 09/14/22 13:26 09/14/22 13:26 09/14/22 13:30 Temperature Pulse Rate 79 Respiratory Rate Blood Pressure 176/80 H 170/76 H Pulse Oximetry 96 Oxygen Delivery Method Oxygen Flow Rate 09/14/22 13:30 09/14/22 13:35 09/14/22 13:35 Temperature Pulse Rate 78 73 Respiratory Rate 19 23 Blood Pressure 155/68 H Pulse Oximetry 96 96 Oxygen Delivery Method Oxygen Flow Rate 09/14/22 13:40 09/14/22 13:40 09/14/22 13:45 Temperature Pulse Rate 67 69 Respiratory Rate 18 19 Blood Pressure 156/72 H Pulse Oximetry 95 96 Oxygen Delivery Method Oxygen Flow Rate 09/14/22 13:45 09/14/22 14:00 09/14/22 14:30 Temperature Pulse Rate 69 67 Respiratory Rate 19 18 Blood Pressure 133/73 Pulse Oximetry 97 97 Oxygen Delivery Method Oxygen Flow Rate 09/14/22 16:08 Temperature 96.9 F L Pulse Rate 78 Respiratory Rate 20 Blood Pressure 180/79 H Pulse Oximetry 94 Oxygen Delivery Method Oxygen Flow Rate 0 Oxygen Delivery Method Room Air Oxygen Flow Rate 0 Narrative Exam Narrative: Elderly female who is alert and oriented x3 in no apparent distress. No sign of any injury to bilateral upper extremities. Patient does have an essential tremor mainly involving bilateral hands. No sign of any bruising or swelling to the upper extremities. Normal motion of the shoulder elbow wrist and fingers. No sign of any obvious injury to the right lower leg. Compartments are soft. Positive dorsiflexion and plantar flexion. 5/5 strength. Palpable pedal pulses. On the left side there is shortening of the extremity. No sign of any injury to the ankle or knee. Some swelling to the thigh but compartments are soft. Palpable pedal pulses. Objective Labs 09/14/22 12:00 09/14/22 13:50 Labs: Laboratory Results - last 24 hr 09/14/22 09/14/22 09/14/22 12:00 12:00 12:00 WBC 4.8 RBC 4.40 Hgb 13.0 Hct 40.1 MCV 91.3 MCH 29.6 MCHC 32.5 RDW 15.1 H Plt Count 169 Neut % (Auto) 75.1 H Lymph % (Auto) 16.8 L [place] % (Auto) 6.0 Eos % (Auto) 1.2 L Baso % (Auto) 0.9 Neut # (Auto) 3600 Lymph # (Auto) 800 L [place] # (Auto) 300 Eos # (Auto) 100 Baso # (Auto) 0 PT 32.7 H INR 2.8 H APTT 33 Sodium Potassium Chloride Carbon Dioxide BUN Creatinine Estimated GFR BUN/Creatinine Ratio Glucose Hemoglobin A1c Lactate 1.7 Calcium Total Bilirubin AST ALT Alkaline Phosphatase Total Protein Albumin Globulin Albumin/Globulin Ratio SARS-CoV-2 (PCR) Blood Type Antibody Screen 09/14/22 09/14/22 09/14/22 13:00 13:15 13:22 WBC RBC Hgb Hct MCV MCH MCHC RDW Plt Count Neut % (Auto) Lymph % (Auto) [place] % (Auto) Eos % (Auto) Baso % (Auto) Neut # (Auto) Lymph # (Auto) [place] # (Auto) Eos # (Auto) Baso # (Auto) PT INR APTT Sodium Potassium Chloride Carbon Dioxide BUN Creatinine Estimated GFR BUN/Creatinine Ratio Glucose Hemoglobin A1c 5.6 Lactate Calcium Total Bilirubin AST ALT Alkaline Phosphatase Total Protein Albumin Globulin Albumin/Globulin Ratio SARS-CoV-2 (PCR) Negative Blood Type O Positive Antibody Screen Negative 09/14/22 13:50 WBC RBC Hgb Hct MCV MCH MCHC RDW Plt Count Neut % (Auto) Lymph % (Auto) [place] % (Auto) Eos % (Auto) Baso % (Auto) Neut # (Auto) Lymph # (Auto) [place] # (Auto) Eos # (Auto) Baso # (Auto) PT INR APTT Sodium 141 Potassium 5.0 Chloride 110 H Carbon Dioxide 24 BUN 22 H Creatinine 0.92 Estimated GFR > 60 BUN/Creatinine Ratio 23.9 H Glucose 111 H Hemoglobin A1c Lactate Calcium 8.7 Total Bilirubin 0.6 AST 25 ALT 20 Alkaline Phosphatase 110 Total Protein 6.6 Albumin 3.6 Globulin 3.0 Albumin/Globulin Ratio 1.2 SARS-CoV-2 (PCR) Blood Type Antibody Screen [facility] Social History household members: other Tobacco & Substance Use Smoking Status: Former smoker alcohol intake: current Assessment & Plan Assessment & Plan narrative: 77-year-old female with a femoral shaft fracture involving the left leg. Discussed with the patient that this will require surgical treatment. We will plan on intramedullary fixation her left femoral shaft fracture. Surgery most likely be tomorrow depending on her INR. Okay for patient to eat tonight. The risk, benefits, alternatives, possible complications, operative course, and postop outcomes were discussed. Complications including but not limiting to bleeding, infection, fracture, nerve injury, continued pain postoperatively or instability postoperatively were discussed in detail. Medical complications including but not limited to deep venous thrombosis event, anesthesia complications with excessive bleeding, vascular events or cardiac events and other possible complications were discussed in detail. Need for postoperative rehabilitation and anticipated hospital stay and clinical course were discussed in detail. Patient acknowledges understanding and elects to proceed with surgery. Time Spent With Patient Critical Care time: I spent a total of [] minutes of critical care time on this patient's care today; this time is exclusive of procedural time.
[2022-09-14] MEDS: OXYCODONE IR 5 MG TABLET PO (17:34)
[2022-09-14 18:05] LABS: Appearance Urine UA CLEAR; Bilirubin Urine UA NEGATIVE (NEGATIVE); Color Urine UA YELLOW; Glucose Urine UA NEGATIVE (Negative); Ketones Urine UA NEGATIVE (NEGATIVE); Leukocyte Esterase Urine UA NEGATIVE (NEGATIVE); Nitrite Urine UA NEGATIVE (Negative); Occult Blood Urine UA NEGATIVE (Negative); Protein Urine UA NEGATIVE (Negative); Specific Gravity Urine UA 1.015 (1.000-1.035); Urobilinogen Urine UA 0.2 E.U./dL (0.2)
[2022-09-14 18:16] LABS: RBC Urine None Seen (0-5/HPF); WBC Urine 0-1/HPF (0-5/HPF)
[2022-09-14 18:19] LABS: Amorphous Sediment Urine 1+; Bacteria Urine Occasional (0-1); Culture Indicated Urine Cult Not Indicated
[2022-09-14] MEDS: AMLODIPINE 5 MG TABLET 7.5 MG PO (21:07)
[2022-09-14] MEDS: ATORVASTATIN 20 MG TABLET 40 MG PO (21:07)
[2022-09-14] MEDS: DONEPEZIL 5 MG TABLET 10 MG PO (21:11)
[2022-09-14] MEDS: MELATONIN 3 MG TABLET PO (21:11)
[2022-09-14] MEDS: ARIPiprazole 10 MG TABLET PO (21:11)
[2022-09-14] MEDS: QUETIAPINE 100 MG TABLET 300 MG PO (21:11)
[2022-09-14] MEDS: TOPIRAMATE 100 MG TABLET PO (21:12)
[2022-09-15] VITALS (17 sets, daily range): BP systolic 105–173; BP diastolic 46–86; PULSE 62–114; RESP 11–26; TEMP 36–37.1; O2SAT 93–99; BMI 29.1
--- NOTE | 2022-09-15 | DI.RAD.S_ITS ---
PROCEDURE: XR FEMUR LT MIN 2V INDICATIONS: LEFT I.M. FEMUR NAIL TECHNIQUE: Multiple views of the femur were acquired. COMPARISON: [facility], [place], XR HIP W PEL IF DONE LT 2V, 09/14/2022, 12:17. [facility], [place], XR FEMUR LT MIN 2V, 09/14/2022, 12:17. FINDINGS: Multiple intraoperative fluoroscopy images demonstrate open reduction and internal fixation of left femoral shaft fracture with placement of an intramedullary noa and multiple fixation screws.. IMPRESSION: ORIF of femoral shaft fracture. Dictated by: Cecile Stevens M.D. on 09/15/2022 at 20:19 Approved by: Cecile Stevens M.D. on 09/15/2022 at 20:20
[2022-09-15] MEDS: ACETAMINOPHEN 325 MG TABLET 650 MG PO (04:51)
[2022-09-15 05:17] LABS: Add Manual Diff / Slide Review NO; Basophils Absolute Auto 0 /uL (0-100); Basophils Percent Auto 0.5 % (0-2); Eosinophils Absolute Auto 0 /uL (0-450); Eosinophils Percent Auto 0.7 % (2-4); Hematocrit 36.5 % (36-46); Hemoglobin 12.1 g/dL (12.0-16.0); INR 3.3 (0.9-1.3); Lymphocytes Absolute Auto 900 /uL (1100-4500); Lymphocytes Percent Auto 14.5 % (25-40); Mean Corpuscular HGB Conc 33.1 % (30-36); Mean Corpuscular Hemoglobin 30.2 PG (26-34); Mean Corpuscular Volume 91.3 fL (80-100); Monocytes Absolute Auto 800 /uL (0-900); Monocytes Percent Auto 13.2 % (3-14); Neutrophils Absolute Auto 4600 /uL (1500-7000); Neutrophils Percent Auto 71.1 % (50-75); Platelet Count 135 X10^3/uL (150-400); Prothrombin Time 38.6 SECONDS (10.1-12.7); Red Cell Distribution Width 15.2 % (11.6-14.8); White Blood Cell Count 6.4 X10^3/uL (4.5-11.0)
[2022-09-15 05:28] LABS: BUN Creatinine Ratio 22.9 (6-22); Blood Urea Nitrogen 25 mg/dL (7-17); Calcium 8.6 mg/dL (8.4-10.2); Carbon Dioxide 22 mmol/L (22-32); Chloride 109 mmol/L (98-107); Estimated Glomerular Filt Rate 52 mL/min (>60); Glucose 101 mg/dL (80-110); HEMOLYSIS < 15 (0-50); Sodium 139 mmol/L (137-145)
[2022-09-15] MEDS: PHYTONADIONE (VIT K1) 5 MG in SODIUM CHLORIDE 0.9% 100 ML 201 MG IV (07:43)
[2022-09-15] MEDS: SODIUM CHLORIDE 0.9% 1,000 ML 100 ML IV (08:35)
[2022-09-15 09:32] LABS: Prothrombin Time 35.3 SECONDS (10.1-12.7)
--- NOTE | 2022-09-15 12:04 | PC.NURSE ---
Addendum entered by Doron Ulloa R.N. 09/15/22 18:36: Pt continues downstairs in OR. Addendum entered by Doron Ulloa R.N. 09/15/22 16:52: Pt down to OR about 40 minutes ago. Addendum entered by Doron Ulloa R.N. 09/15/22 16:43: Pt went down to surgery with FFP infusing. OR to finalize transfusion of FFP Original Note: A&O restful though anxious about hip and when surgery is going to be. Checking INR, Vit K given per orders. IVF's started per orders. Son attentive in room. Plan for FFP this afternoon prior to surgery. Orders to come.
--- NOTE | 2022-09-15 15:15 | P.PN_ITS ---
Subjective Subjective Date Patient Seen: 09/15/22 Interval history: Patient's pain is currently well controlled. INR 3.3 this morning so given 5mg vitamin K. Plan for surgery and FFP beforehand at 5:15 today. Exam Vital Signs (past 8 hours): - 09/15/22 08:47 Temperature 96.8 F L Pulse Rate 62 Respiratory Rate 16 Blood Pressure 105/48 L Pulse Oximetry 96 Oxygen Flow Rate 0 Oxygen Delivery Method Room Air Oxygen Flow Rate 0 Narrative Exam Narrative: GEN: no acute distress, sleepy from pain medication HEENT: moist mucous membranes, PERRL NECK: trachea midline, no JVD CV: regular rate and rhythm, no murmurs PULM: clear bilaterally ABD: soft, nontender, nondistended, no organomegaly EXT: left leg shortened and externally rotated NEURO: awake, alert, oriented, no focal deficits Objective Labs 09/15/22 04:38 09/15/22 04:38 Labs: Laboratory Results - last 24 hr 09/14/22 09/14/22 09/15/22 13:50 17:52 04:38 WBC RBC Hgb Hct MCV MCH MCHC RDW Plt Count Neut % (Auto) Lymph % (Auto) [place] % (Auto) Eos % (Auto) Baso % (Auto) Neut # (Auto) Lymph # (Auto) [place] # (Auto) Eos # (Auto) Baso # (Auto) PT 38.6 H D INR 3.3 H Sodium 141 Potassium 5.0 Chloride 110 H Carbon Dioxide 24 BUN 22 H Creatinine 0.92 Estimated GFR > 60 BUN/Creatinine Ratio 23.9 H Glucose 111 H Calcium 8.7 Total Bilirubin 0.6 AST 25 ALT 20 Alkaline Phosphatase 110 Total Protein 6.6 Albumin 3.6 Globulin 3.0 Albumin/Globulin Ratio 1.2 Urine Color Yellow Urine Appearance Clear Urine pH 7.0 Ur Specific [place] 1.015 Urine Protein Negative Urine Glucose (UA) Negative Urine Ketones Negative Urine Occult Blood Negative Urine Nitrate Negative Urine Bilirubin Negative Urine Urobilinogen 0.2 Ur Leukocyte Esterase Negative Urine RBC None seen Urine WBC 0-1/hpf Amorphous Sediment 1+ Urine Bacteria Occasional (0-1) Ur Culture Indicated? Cult not indicated 09/15/22 09/15/22 09/15/22 04:38 04:38 09:05 WBC 6.4 RBC 4.00 Hgb 12.1 Hct 36.5 MCV 91.3 MCH 30.2 MCHC 33.1 RDW 15.2 H Plt Count 135 L Neut % (Auto) 71.1 Lymph % (Auto) 14.5 L [place] % (Auto) 13.2 Eos % (Auto) 0.7 L Baso % (Auto) 0.5 Neut # (Auto) 4600 Lymph # (Auto) 900 L [place] # (Auto) 800 Eos # (Auto) 0 Baso # (Auto) 0 PT 35.3 H INR 3.0 H Sodium 139 Potassium 4.0 Chloride 109 H Carbon Dioxide 22 BUN 25 H Creatinine 1.09 H Estimated GFR 52 L BUN/Creatinine Ratio 22.9 H Glucose 101 Calcium 8.6 Total Bilirubin AST ALT Alkaline Phosphatase Total Protein Albumin Globulin Albumin/Globulin Ratio Urine Color Urine Appearance Urine pH Ur Specific [place] Urine Protein Urine Glucose (UA) Urine Ketones Urine Occult Blood Urine Nitrate Urine Bilirubin Urine Urobilinogen Ur Leukocyte Esterase Urine RBC Urine WBC Amorphous Sediment Urine Bacteria Ur Culture Indicated? [facility] Social History household members: other Smoking Status: Former smoker alcohol intake: current Assessment & Plan Assessment & Plan narrative: # ground level fall resulting in left mid-shaft displaced femur fracture -Dr. Jose Eduardo romano consulting and will take for surgery on 09/15 -hold warfarin, s/p 1 dose 5mg vit K and will give FFP 2 hours before surgery -oxycodone and Dilaudid as needed for pain working well # chronic atrial fibrillation -holding warfarin due to pending surgery -daily INR checks # bipolar disorder -continue home seroquel, abilify and topamax # HTN, chronic -continue home amlodipine, holding lisinopril due to borderline high K # HLD, chronic -continue home statin # vascular dementia -continue home donepezil Code status is DNR. COVID negative. DVT prophylaxis with SCDs. Proxy is son Astrid. Dispo: Likely SNF following surgery. Time Spent With Patient Critical Care time: I spent a total of [] minutes of critical care time on this patient's care today; this time is exclusive of procedural time. Quality VTE Deep Vein Thrombosis/Pulmonary Embolism Present on Admission: No
--- NOTE | 2022-09-15 15:18 | CM.DANOTE ---
Patient is a 77 yo female who was admitted on 09/14/22 for GLF/femur fx. Pt has [email or web address] and [email or web address] for insurance and her PCP is Mazin Alvarez. EMR was reviewed. Per MD, pt with GLF resulting in femur fx. Per Ortho MD Consult, recommendation is surgical intervention but due to pt's warfarin need to wait until tonight for surgery. Per bill poster installer, surg scheduled in OR tonight at 1700. SW attempted bedside assessment and pt had multiple supportive family members bedside but pt, family, and RN requested d/c discussion happen tomorrow after surgery tonight as pt and family quite anxious about pt's pain and upcoming surgery and cannot focus on anything further at this time. Plan: SW to follow closely in the AM with pt and family and likely PT/OT eval towards determining d/c planning needs and likely SNF vs home with lots of family support and HH pending progress. VIRAJ Wei Discharge Planning/Care Management Advanced directive, confirm from FAMILY Start: 09/14/22 15:24 Freq: Q24H Status: Active Protocol: Document 09/14/22 15:49 CLL (Rec: 09/14/22 15:59 CLL [id number]) Co-signed By Wendy Schmitz RN Advance Directive, confirm on record Time 15:59 Person contacted patient Copy received No CM Discharge Assessment Start: 09/15/22 15:14 Freq: Status: Active Protocol: Document 09/15/22 15:14 BF (Rec: 09/15/22 15:18 BF [id number]) Discharge Planning Assessment Assigned Carbonator VIRAJ Anderson DPOA/Assigned Designee Name miya Resendiz Contact Information [phone] Advance Directives? Yes Advance Directives on File No: states DNR History Provided By Patient,Family Member,Medical Record Has Patient been admitted in last 30 No days? Prior Living Arrangements House Type of transporation used prior to Relies on Others admit Independent with ADL's Yes: somewhat Is patient alert and oriented? Yes Needs Assistance With Meal Prep,Managing Medications ,Home Chores / Shopping Caregiver for Another No DME Already Rented / Owned FWW / Walker Patient/Family Preference [facility] Comment Pending surgery and PT/OT eval Barriers to Discharge No Discharge Plan [facility] Transportation Arrangement Pending d/c needs SNF facility van vs family POV Additional Comment Pending surgery tonight and PT /OT eval Review Status In Process Please Provide Date Initial DC 09/15/22 Assessment Was Performed Next Review Type Continued Stay Review
--- NOTE | 2022-09-15 16:35 | PM.PREOP ---
Pre-operative Note Interval Note History & Physical reviewed/Exam performed by Physician: Yes Changes to H&P: No
[2022-09-15 16:38] LABS: INR 1.6 (0.9-1.3); Prothrombin Time 18.6 SECONDS (10.1-12.7)
[2022-09-15] MEDS: LACTATED RINGERS 1,000 ML 42 ML IV ×2 (16:49→18:08)
--- NOTE | 2022-09-15 16:50 | SUR.HOLD ---
Patient with Son to pre-op holding area for surgery; son here to assist with consent signing due to slight dementia with patient. INR sent to lab for confirmation; results 1.6. Dr Whitt at bedside with anesthesia. VSS. Patient AAO X 3 at this time. FFP infusion completed without any side effects experienced by patient.
[2022-09-15] MEDS: CEFAZOLIN 2 GM/100 ML PREMIX 100 ML IV (17:12)
[2022-09-15] MEDS: BUPIVACAINE 0.5% W/ EPI (PF) 30 ML VIAL INJ (17:35)
--- NOTE | 2022-09-15 17:39 | SUR.OPER ---
Supine on padded [place] table with left leg secured in padded positioning boots and suspended in positioning spars, right leg in well-leg sweet with gels and kerlix wrap, operative leg in traction per surgeon. Head on one pillow. Arm on non-operative side secured on padded armboard <90 degrees abduction. Arm on operative side padded and resting across chest then secured with tape over sheet. Padded perineal post in place per surgeon. Pt positioned per direction and supervision of Dr Whitt.
--- NOTE | 2022-09-15 19:34 | P.OP_ITS ---
Operative Date/Time/Diagnoses Date of procedure: 09/15/22 Time of procedure: 17:30 Pre-op diagnosis: Left femur shaft fracture Post-op diagnosis: same Procedure & Clinicians Procedure: Open reduction internal fixation with intramedullary nail of a femur shaft fracture Same procedure as scheduled: Yes Indications: Left femur shaft fracture Surgeon: Javon Whitt Click Yes if Unassisted: Yes Anesthesia Type: General Operative Notes Findings: Displaced femur shaft fracture with some spiral extension distally but no sign of any intra-articular involvement. No sign of any proximal femur involvement. No intertrochanteric subtrochanteric or femoral neck fracture. Closure Type: primary Applied: implant(s) (10 mm x 38 cm nail. Guaman and Nephew. 5 mm x 65 mm screw and a 5 mm x 45 mm screw) Estimated Blood Loss (mL): 300 Procedure in detail: On date of service patient was met in the holding area where his operative site was signed and witnessed by the OR staff. Surgery was once again discussed with the patient in remaining questions or concerns he had were answered fully. Patient was taken back to the operating theater. Spinal anesthesia was administered and then patient was transferred to the fracture table. Great care was taken to ensure that all bony prominences were appropriately padded. Left leg was placed into the traction boot and the right leg was placed into the well leg sweet with good padding to both legs. C-arm was brought in to verify re duction the fracture. Patient had some apposition at the fracture site on the AP view but good overall alignment on the lateral view. Once we were satisfied with overall reduction, the right leg was prepped and draped in the normal sterile fashion. Ten blade was used to incise through skin and fascial tissue. Deep knife was then used to incise through the ITB band. Guidewire was placed on the greater tuberosity and entered in to the canal. This was verified with C-arm. Entry Reamer was used to ream the entry hole. Ball-tipped guide was passed down the femur with a reduction finger. Even with the reduction finger had a hard time reducing the fracture despite adjusting traction as well as medial and lateral pressure. Due to this fact a incision was made centered over the fracture site. Ten blade was used to incise through skin and fascial tissues well as the IT band. Holliday elevator was used to elevate the lateral musculature off the fracture. Reduction forceps were placed both distally and proximally allowing us to reduce the fracture and hold it provisionally with a 3 point reduction forceps. Once we had it reduced we then were able to pass the ball-tip guide and watch the guide passed through the fracture site into the distal fragment. Its position was then verified on C- arm. As well as the overall reduction. Next we reamed and it was felt that a 10 mm nail would be the appropriate diameter. It was also measured to a 38 cm length nail. A 10 mm by 38 cm nail was placed. The depth of the nail was verified under C-arm. Once we are satisfied with the position of the nail and the fracture site the nail was locked proximally followed by distally. Final x- rays were obtained. The 3 separate wound was copiously irrigated and then closed in a layered fashion. Patient's leg was cleaned, dried, and dressed. Patient was taken off the fracture table transferred to a stretcher and taken to the PACU in stable condition. Complications: none Post-operative Condition: stable Disposition: Acute Care Plan for aftercare: Patient can be weight-bearing as tolerated
--- NOTE | 2022-09-15 19:43 | SUR.PHASEI ---
Patient following all commands and oriented to self and place; denies pain at this time; denies SOB; afib noted on the monitor in 130s on arrival to PACU: anesthesia giving Metoprolol IV for rate control.
[2022-09-15] MEDS: LACTATED RINGERS 1,000 ML 125 ML IV (20:24)
[2022-09-15] MEDS: TOPIRAMATE 100 MG TABLET PO (20:38)
[2022-09-15] MEDS: AMLODIPINE 5 MG TABLET 7.5 MG PO (20:46)
[2022-09-15] MEDS: LACTOBACILLUS ACIDOPHILUS TABLET 2 EACH PO (20:46)
[2022-09-15] MEDS: ARIPiprazole 10 MG TABLET PO (20:46)
[2022-09-15] MEDS: DOCUSATE 100 MG CAPSULE PO (20:46)
[2022-09-15] MEDS: QUETIAPINE 100 MG TABLET 300 MG PO (20:48)
[2022-09-15] MEDS: DONEPEZIL 5 MG TABLET 10 MG PO (20:49)
[2022-09-15] MEDS: FISH OIL 1,000 MG CAPSULE 1000 MG PO (20:52)
[2022-09-15] MEDS: MAGNESIUM HYDROXIDE 30 ML UDC PO (20:54)
[2022-09-16] VITALS (9 sets, daily range): BP systolic 93–131; BP diastolic 33–53; PULSE 75–112; RESP 14–17; TEMP 36–36.6; O2SAT 92–97
[2022-09-16] MEDS: CEFAZOLIN 2 GM/100 ML PREMIX 100 ML IV ×2 (02:45→09:31)
[2022-09-16 05:03] LABS: Add Manual Diff / Slide Review NO; Basophils Absolute Auto 0 /uL (0-100); Basophils Percent Auto 0.1 % (0-2); Eosinophils Absolute Auto 0 /uL (0-450); Hematocrit 26.5 % (36-46); Hemoglobin 8.8 g/dL (12.0-16.0); INR 1.3 (0.9-1.3); Lymphocytes Absolute Auto 300 /uL (1100-4500); Lymphocytes Percent Auto 4.1 % (25-40); Mean Corpuscular HGB Conc 33.3 % (30-36); Mean Corpuscular Volume 90.1 fL (80-100); Monocytes Absolute Auto 600 /uL (0-900); Monocytes Percent Auto 7.9 % (3-14); Neutrophils Absolute Auto 6900 /uL (1500-7000); Neutrophils Percent Auto 87.9 % (50-75); Platelet Count 107 X10^3/uL (150-400); Prothrombin Time 15.3 SECONDS (10.1-12.7); Red Blood Cell Count 2.94 X10^6/uL (4.0-5.2); Red Cell Distribution Width 14.7 % (11.6-14.8); White Blood Cell Count 7.9 X10^3/uL (4.5-11.0)
[2022-09-16 05:09] LABS: BUN Creatinine Ratio 29.2 (6-22); Blood Urea Nitrogen 28 mg/dL (7-17); Calcium 7.8 mg/dL (8.4-10.2); Carbon Dioxide 23 mmol/L (22-32); Chloride 110 mmol/L (98-107); Estimated Glomerular Filt Rate > 60 mL/min (>60); Glucose 134 mg/dL (80-110); HEMOLYSIS < 15 (0-50); Potassium 4.2 mmol/L (3.4-5.1); Sodium 139 mmol/L (137-145)
--- NOTE | 2022-09-16 07:37 | P.PN_ITS ---
Subjective Subjective Date Patient Seen: 09/16/22 Interval history: Patient underwent femur fracture repair last night. Had a bout of A-fib RVR which quickly resolved and is now with HR in 90's. Currently she is having some pain after working with OT and is sleepy because she didn't sleep well last night. Son is at bedside and questions were answered. Exam Vital Signs (past 8 hours): - 09/16/22 00:00 09/16/22 04:00 Temperature 96.9 F L 97.1 F L Pulse Rate 112 H 108 H Respiratory Rate 15 15 Blood Pressure 131/52 L 109/47 L Pulse Oximetry 97 97 Oxygen Flow Rate 1 1 Oxygen Delivery Method Nasal Cannula Oxygen Flow Rate 1 Narrative Exam Narrative: GEN: no acute distress, sleepy from pain medication HEENT: moist mucous membranes, PERRL NECK: trachea midline, no JVD CV: regular rate and rhythm, no murmurs PULM: clear bilaterally ABD: soft, nontender, nondistended, no organomegaly EXT: left leg postop dressing in place NEURO: awake, alert, oriented, no focal deficits Objective Labs 09/16/22 04:45 09/16/22 04:45 Labs: Laboratory Results - last 24 hr 09/14/22 09/14/22 09/15/22 13:22 13:50 09:05 WBC RBC Hgb Hct MCV MCH MCHC RDW Plt Count Neut % (Auto) Lymph % (Auto) [place] % (Auto) Eos % (Auto) Baso % (Auto) Neut # (Auto) Lymph # (Auto) [place] # (Auto) Eos # (Auto) Baso # (Auto) PT 35.3 H INR 3.0 H Sodium 141 Potassium 5.0 Chloride 110 H Carbon Dioxide 24 BUN 22 H Creatinine 0.92 Estimated GFR > 60 BUN/Creatinine Ratio 23.9 H Glucose 111 H Calcium 8.7 Total Bilirubin 0.6 AST 25 ALT 20 Alkaline Phosphatase 110 Total Protein 6.6 Albumin 3.6 Globulin 3.0 Albumin/Globulin Ratio 1.2 Blood Type O Positive Antibody Screen Negative 09/15/22 09/16/22 09/16/22 16:20 04:45 04:45 WBC 7.9 RBC 2.94 L Hgb 8.8 L Hct 26.5 L MCV 90.1 MCH 30.0 MCHC 33.3 RDW 14.7 Plt Count 107 L Neut % (Auto) 87.9 H Lymph % (Auto) 4.1 L [place] % (Auto) 7.9 Eos % (Auto) 0.0 L Baso % (Auto) 0.1 Neut # (Auto) 6900 Lymph # (Auto) 300 L [place] # (Auto) 600 Eos # (Auto) 0 Baso # (Auto) 0 PT 18.6 H D 15.3 H INR 1.6 H 1.3 Sodium Potassium Chloride Carbon Dioxide BUN Creatinine Estimated GFR BUN/Creatinine Ratio Glucose Calcium Total Bilirubin AST ALT Alkaline Phosphatase Total Protein Albumin Globulin Albumin/Globulin Ratio Blood Type Antibody Screen 09/16/22 04:45 WBC RBC Hgb Hct MCV MCH MCHC RDW Plt Count Neut % (Auto) Lymph % (Auto) [place] % (Auto) Eos % (Auto) Baso % (Auto) Neut # (Auto) Lymph # (Auto) [place] # (Auto) Eos # (Auto) Baso # (Auto) PT INR Sodium 139 Potassium 4.2 Chloride 110 H Carbon Dioxide 23 BUN 28 H Creatinine 0.96 Estimated GFR > 60 BUN/Creatinine Ratio 29.2 H Glucose 134 H Calcium 7.8 L Total Bilirubin AST ALT Alkaline Phosphatase Total Protein Albumin Globulin Albumin/Globulin Ratio Blood Type Antibody Screen [facility] Social History household members: other Smoking Status: Former smoker alcohol intake: current Assessment & Plan Assessment & Plan narrative: # ground level fall resulting in left mid-shaft displaced femur fracture -Dr. Whitt ortho consulting and took for surgery on 09/15 with left femoral noa placed -restarted warfarin with lovenox 40 daily to bridge -oxycodone and Dilaudid as needed for pain -watch for over medication with narcotics, patient sleepy either from pain meds or lack of sleep overnight -PT/OT rec SNF # chronic atrial fibrillation -INR 3 then given Vit K and FFP prior to surgery, now 1.3 -warfarin restarted and on lovenox for bridge -daily INR checks # bipolar disorder -continue home seroquel, abilify and topamax # HTN, chronic -continue home amlodipine, holding lisinopril due to borderline high K # HLD, chronic -continue home statin # vascular dementia -continue home donepezil Code status is DNR. COVID negative. DVT prophylaxis with SCDs. Proxy is son Astrid. Dispo: Awaiting SNF. Time Spent With Patient Critical Care time: I spent a total of [] minutes of critical care time on this patient's care today; this time is exclusive of procedural time. Quality VTE Deep Vein Thrombosis/Pulmonary Embolism Present on Admission: No
--- NOTE | 2022-09-16 08:27 | P.PN_ITS ---
Subjective Subjective Date Patient Seen: 09/16/22 Time Patient Seen: 08:27 Interval history: Sitting up in bed, minimal pain, no complaints. About to eat breakfast. Exam Vital Signs (past 8 hours): - 09/16/22 04:00 Temperature 97.1 F L Pulse Rate 108 H Respiratory Rate 15 Blood Pressure 109/47 L Pulse Oximetry 97 Oxygen Flow Rate 1 Oxygen Delivery Method Nasal Cannula Oxygen Flow Rate 1 Narrative Exam Narrative: 4/5 DF, PF, EHL on left; 0/5 hip flexors, quadriceps, hamstrings. Pt hesitant w/ movement. Sensation to light touch intact throughout LLE. Calf soft, compressible, nontender and without palpable cords or masses; SCDs in place and functioning. Aquacel dressing and gauze w/ tegaderm placed intraoperatively w/ minimal bloody drainage; intact. Objective Labs 09/16/22 04:45 09/16/22 04:45 Labs: Laboratory Results - last 24 hr 09/14/22 09/14/22 09/15/22 13:22 13:50 09:05 WBC RBC Hgb Hct MCV MCH MCHC RDW Plt Count Neut % (Auto) Lymph % (Auto) [place] % (Auto) Eos % (Auto) Baso % (Auto) Neut # (Auto) Lymph # (Auto) [place] # (Auto) Eos # (Auto) Baso # (Auto) PT 35.3 H INR 3.0 H Sodium 141 Potassium 5.0 Chloride 110 H Carbon Dioxide 24 BUN 22 H Creatinine 0.92 Estimated GFR > 60 BUN/Creatinine Ratio 23.9 H Glucose 111 H Calcium 8.7 Total Bilirubin 0.6 AST 25 ALT 20 Alkaline Phosphatase 110 Total Protein 6.6 Albumin 3.6 Globulin 3.0 Albumin/Globulin Ratio 1.2 Blood Type O Positive Antibody Screen Negative 09/15/22 09/16/22 09/16/22 16:20 04:45 04:45 WBC 7.9 RBC 2.94 L Hgb 8.8 L Hct 26.5 L MCV 90.1 MCH 30.0 MCHC 33.3 RDW 14.7 Plt Count 107 L Neut % (Auto) 87.9 H Lymph % (Auto) 4.1 L [place] % (Auto) 7.9 Eos % (Auto) 0.0 L Baso % (Auto) 0.1 Neut # (Auto) 6900 Lymph # (Auto) 300 L [place] # (Auto) 600 Eos # (Auto) 0 Baso # (Auto) 0 PT 18.6 H D 15.3 H INR 1.6 H 1.3 Sodium Potassium Chloride Carbon Dioxide BUN Creatinine Estimated GFR BUN/Creatinine Ratio Glucose Calcium Total Bilirubin AST ALT Alkaline Phosphatase Total Protein Albumin Globulin Albumin/Globulin Ratio Blood Type Antibody Screen 09/16/22 04:45 WBC RBC Hgb Hct MCV MCH MCHC RDW Plt Count Neut % (Auto) Lymph % (Auto) [place] % (Auto) Eos % (Auto) Baso % (Auto) Neut # (Auto) Lymph # (Auto) [place] # (Auto) Eos # (Auto) Baso # (Auto) PT INR Sodium 139 Potassium 4.2 Chloride 110 H Carbon Dioxide 23 BUN 28 H Creatinine 0.96 Estimated GFR > 60 BUN/Creatinine Ratio 29.2 H Glucose 134 H Calcium 7.8 L Total Bilirubin AST ALT Alkaline Phosphatase Total Protein Albumin Globulin Albumin/Globulin Ratio Blood Type Antibody Screen [facility] Social History household members: other Smoking Status: Former smoker alcohol intake: current Assessment & Plan Post-op Assessment and plan (1) Status post hip surgery: Assessment and Plan narrative: Weight bearing as tolerated on LLE. Should use walker at all times. Warfarin as taken preop for a fib should be sufficient for VTE prophylaxis; continue SCDs in hospital. Pain control per hospitalist service. (2) Acute postoperative anemia due to expected blood loss: Assessment and Plan narrative: VSS, making urine. No intervention appears to be needed at this time, but will defer to hospitalist service for monitoring and management. Postoperative Procedures: Procedures Operation Date: 09/15/22 17:15 Actual Procedure Side Surgeon p Intramedullary Nailing Femur Left Javon Whitt MD Postoperative day: 1 Quality VTE Deep Vein Thrombosis/Pulmonary Embolism Present on Admission: No
[2022-09-16] MEDS: MULTIVITAMIN 1 TABLET 1 TAB PO (09:22)
[2022-09-16] MEDS: LACTOBACILLUS ACIDOPHILUS TABLET 2 EACH PO ×2 (09:22→22:19)
[2022-09-16] MEDS: CHOLECALCIFEROL (VITAMIN D3) 1,000 UNIT TABLET 2000 UNIT PO (09:23)
[2022-09-16] MEDS: DOCUSATE 100 MG CAPSULE PO ×2 (09:23→22:25)
[2022-09-16] MEDS: ACETAMINOPHEN SUSP 650 MG/20.3 ML UDC 500 MG PO (09:23)
[2022-09-16] MEDS: ENOXAPARIN 40 MG/0.4 ML SYRINGE SUBCUT (09:24)
[2022-09-16] MEDS: CALCIUM CARB/VIT D3 500/200 TABLET 1 EACH PO (09:27)
--- NOTE | 2022-09-16 10:17 | PT.IIE ---
Current Diagnoses Acute posthemorrhagic anemia (09/14/22) Unspecified fracture of left femur, initial encounter for closed fracture (09/14/22) Other specified postprocedural states (09/14/22) Surgery Performed Operation Date: 09/15/22 17:15 Actual Procedures p Intramedullary Nailing Femur(Left) - Javon Whitt MD Physical Therapy Inpatient Evaluation/Re-Eval M1 PT/OT-IP Prior Functional Status Start: 09/16/22 12:30 Freq: NEEDED Status: Active Protocol: Document 09/16/22 10:17 AB (Rec: 09/16/22 12:46 AB [id number]) Medical Review Prior Functional Status Medical History Reviewed Yes Communication able to answer questions but needed increase time to respond to questions Mobility and Gait pt's son in room and answer some questions for pt: pt is modified independent with ambulation using FWW indoors and 4WW outdoors; able to get in /out bed and do bed mobility by herself; able to ambulate to the toilet by herself using FWW but needs assist with pericare; pt has assistance with showering, dressing. Social History Household Members other Living Arrangements Adult Family Home Number of Floors (Floors) One Floor Number of Stairs To Enter/Railing? no steps to enter Home Environment Standard Height Toilet,Walk in Shower,Built-In Shower Seat Home Equipment Front Wheel Walker,Four Wheel Walker,Hand Held Shower,Grab Bars Near Toilet,Grab Bars In Shower M2 PT-IP Current Condition Start: 09/16/22 12:30 Freq: NEEDED Status: Active Protocol: Document 09/16/22 10:17 AB (Rec: 09/16/22 12:46 AB [email or web address]) Physical Therapy Current Condition Current Condition Evaluation Date 09/16/22 Treatment Diagnosis s/p fall; L hip fracture s/p ORIF; difficulty in walking Onset Date 09/14/22 M3 PT-IP Subjective Start: 09/16/22 12:30 Freq: NEEDED Status: Active Protocol: Document 09/16/22 10:17 AB (Rec: 09/16/22 12:46 AB [email or web address]) Subjective Physical Therapy Visit Type Type Initial Evaluation Visit Start Time 10:17 Visit Stop Time 11:00 Total Visit Minutes 43 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 Physical Therapy Visit Comments Patient Comments initially drowsy but able to participate with PT and increase in alertness after a few minutes Therapy Pain Assessment Pain When Pain Assessed At Rest Pain Present Pain Present Pain Reported Location Left Hip Intensity 5 Scale Used increases to 9/10 with mobiltiy Pain Management Techniques Apply Cold,Distraction, Modification of Treatment,Re- positioning,Timing of Activity with Medications M4 PT-IP Mobility and Gait Start: 09/16/22 12:30 Freq: NEEDED Status: Active Protocol: Document 09/16/22 10:17 AB (Rec: 09/16/22 12:46 AB [email or web address]) PT-Bed Mobility Assessment Supine to Sit Supine to Sit Maximum Assistance,2 Person Assistance,Head of Bed Elevated,Bedrails Scooting Scooting to Edge of Bed Dependent PT-Transfer Assessment Sit to and From Stand Sit to and from Stand Maximum Assistance,2 Person Assistance,Use of Upper Extremities Equipment Transfer Assistive Device Gait Belt,Front Wheeled Walker Orthotic/Prosthetic Devices or Brace: No Transfers Transfer Destination Chair Transfer Technique Stand Pivot Transfer Ability Level of Assist Maximum Assistance,2 Person Assistance,Use of Upper Extremities Comments Mobility Comments BP in supine: 104/46. pt completed supine to sit max A x 2 and max cues. increase posterior trunk lean requiring initial max A for sitting but after repositioning, was able to sti SBA to CGA. c/o lightheadedness. BP checked: 123/47. pt agreed to stand. completed sit to stand max A x 2 and max cues using FWW for support. pt only tolerated ~ 5 sec of sitting and stated that she has to sit down due to increarse L hip pain. pt rested. educated on use of FWW for support. completed sit to stand max A x 2 and complateted pivot transfer to chair using fWW max A x 2 and max cues. positioned pt on the chair. call light and table placed within reach. 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,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 Gross Range of Motion Lower Extremity ROM Assessment Within Functional Limits Strength Lower Extremity Strength Assessment Bilaterally Impaired Comments Strength Comments RLE: 3+/5 LLE: 3-/5 Muscle Tone Muscle Tone WNL Yes M6 PT-IP Treatment Start: 09/16/22 12:30 Freq: NEEDED Status: Active Protocol: Document 09/16/22 10:17 AB (Rec: 09/16/22 12:46 AB [email or web address]) Physical Therapy Treatment Education Education Provided Precautions,Weight Bearing Status,Post-Op Packet,Safety M7 PT-IP Assessment and Plan Start: 09/16/22 12:30 Freq: NEEDED Status: Active Protocol: Document 09/16/22 10:17 AB (Rec: 09/16/22 12:46 AB [email or web address]) PT Summary Assessment and Plan Potential Rehabilitation Potential Fair Status of Condition at Evaluation Evolving Summary Impairments Pain,ROM,Strength,Balance, Coordination,Sensation,Tone, Cognition,Bed Mobility, Transfers,Gait,Activity Tolerance Assessment Summary pt s/p fall sustaining a L femoral neck fracture and underwent ORIF 09/15/22. pt is WBAT on LLE. pt requiring max A x 2 with bed mobility and transfers and unable to ambulate at this time. c/o increase L hip pain with mobility to 9/10. will continue to assess progress but pt will require SNF rehab at this time to improve overall strength and mobility. Goals Bed Mobility Goal Minimal Assistance Transfer Goal Minimal Assistance,Front Wheeled Walker Gait Goal Minimal Assistance,Front Wheel Walker Gait Distance 50 Other Goals improve bed mobility, transfers, ambulation using FWW SBA 150 ft Days to Meet Goals 10 Frequency of Treatment Frequency Of Treatment Twice a Day Treatment Plan Physical Therapy Treatment Plan Bed Mobility Training,Transfer Training,Gait Training, Therapeutic Exercise,Balance Retraining,Post Op Education, Discharge Planning,Hot or Cold Pack,Neuromuscular Re-ed, Coordination Retraining,Manual Therapy Weight Bearing Status Weight Bearing Status Weight Bear as Tolerated Allowed Weight Bearing Amount (enter % LLE: WBAT or #) (%) Recommendations To Nursing Amount of Assist Needed Mechanical Lift Discharge Recommendations PT Discharge Recommendations SNF Rehab Transportation Needs at Discharge Wheelchair/Cabulance
[2022-09-16] MEDS: HYDROCODONE/ACET 5/325 TABLET 1 TAB PO (10:23)
--- NOTE | 2022-09-16 13:50 | OT.IPNOTE ---
Pt just hoyered back to bed per nursing and wanting to rest. To check on pt tomorrow for OT eval.
--- NOTE | 2022-09-16 14:17 | PT-IP ANOTE ---
Nursing exiting pt's room stating BP low and she is very tired. They just finished hoyering her back to bed. Will check back tomorrow.
[2022-09-16] MEDS: ACETAMINOPHEN 325 MG TABLET 650 MG PO (17:15)
[2022-09-16] MEDS: WARFARIN 5 MG TABLET PO (17:15)
[2022-09-16] MEDS: DONEPEZIL 5 MG TABLET 10 MG PO (22:19)
[2022-09-16] MEDS: MAGNESIUM HYDROXIDE 30 ML UDC PO (22:19)
[2022-09-16] MEDS: FISH OIL 1,000 MG CAPSULE 1000 MG PO (22:19)
[2022-09-16] MEDS: TOPIRAMATE 100 MG TABLET PO (22:19)
[2022-09-16] MEDS: ARIPiprazole 10 MG TABLET PO (22:21)
[2022-09-16] MEDS: QUETIAPINE 100 MG TABLET 300 MG PO (22:21)
[2022-09-16] MEDS: MELATONIN 3 MG TABLET 6 MG PO (22:25)
[2022-09-17] VITALS (11 sets, daily range): BP systolic 104–148; BP diastolic 45–58; PULSE 86–105; RESP 16–18; TEMP 36.2–36.8; O2SAT 93–95
[2022-09-17] MEDS: HYDROCODONE/ACET 5/325 TABLET 1 TAB PO (06:17)
[2022-09-17 06:25] LABS: INR 1.2 (0.9-1.3); Prothrombin Time 13.9 SECONDS (10.1-12.7)
[2022-09-17 06:27] LABS: Add Manual Diff / Slide Review NO; Basophils Absolute Auto 0 /uL (0-100); Basophils Percent Auto 0.2 % (0-2); Eosinophils Absolute Auto 100 /uL (0-450); Eosinophils Percent Auto 0.8 % (2-4); Hematocrit 21.3 % (36-46); Lymphocytes Absolute Auto 1000 /uL (1100-4500); Lymphocytes Percent Auto 13.2 % (25-40); Mean Corpuscular HGB Conc 32.7 % (30-36); Mean Corpuscular Volume 91.6 fL (80-100); Monocytes Absolute Auto 1100 /uL (0-900); Monocytes Percent Auto 14.4 % (3-14); Neutrophils Absolute Auto 5500 /uL (1500-7000); Neutrophils Percent Auto 71.4 % (50-75); Platelet Count 106 X10^3/uL (150-400); Red Blood Cell Count 2.32 X10^6/uL (4.0-5.2); Red Cell Distribution Width 15.5 % (11.6-14.8); White Blood Cell Count 7.8 X10^3/uL (4.5-11.0)
[2022-09-17 06:34] LABS: BUN Creatinine Ratio 31.5 (6-22); Blood Urea Nitrogen 47 mg/dL (7-17); Calcium 7.6 mg/dL (8.4-10.2); Carbon Dioxide 23 mmol/L (22-32); Chloride 108 mmol/L (98-107); Estimated Glomerular Filt Rate 36 mL/min (>60); Glucose 115 mg/dL (80-110); HEMOLYSIS < 15 (0-50); Potassium 3.9 mmol/L (3.4-5.1); Sodium 135 mmol/L (137-145)
--- NOTE | 2022-09-17 07:45 | CM.DPC ---
DCP: This DCP met with patient and her son in her room yesterday am. Patient was sitting up in her chair. A+Ox3. Introduced self and role. Patient confirms that she lives at [facility]. Patient gave permission to this DCP to discuss her plan of care with her son, Astrid. Pt and son state that at home she uses 4WW outside and Fww inside. Pt does not drive. Per son, patient will not be able to return to [facility] due to extensive needs of care. He states that he had set patient up to move to another [facility] in [facility] and then she had the fall. This DCP reviewed SNF choices with patient and her son using the tablet and [facility] website. First choice is [facility] and second choice is [facility]. Referrals sent out last pm to both SNF's. Plan: SNF placement when medically stable. Jeannine Chiang RN Case Manager
--- NOTE | 2022-09-17 07:52 | PM.PNPO.1 ---
Subjective Subjective Date Patient Seen: 09/17/22 Time Patient Seen: 07:52 Interval history: Patient states her hip is hurting more this morning. Denies fever chills. No nausea or vomiting. Exam Vital Signs (past 8 hours): - 09/17/22 04:00 Temperature 97.4 F L Pulse Rate 104 H Respiratory Rate 16 Blood Pressure 104/45 L Pulse Oximetry 93 Oxygen Delivery Method Room Air Oxygen Flow Rate 0 Narrative Exam Narrative: 77-year-old female resting comfortably in bed in no apparent distress. Scant drainage on the dressing. Const General: comfortable Orientation: alert Resp Effort & Inspection: normal respiratory effort Objective Labs 09/17/22 05:07 09/17/22 05:07 Labs: Laboratory Results - last 24 hr 09/17/22 09/17/22 09/17/22 05:07 05:07 05:07 WBC 7.8 RBC 2.32 L Hgb 7.0 L Hct 21.3 L MCV 91.6 MCH 30.0 MCHC 32.7 RDW 15.5 H Plt Count 106 L Neut % (Auto) 71.4 Lymph % (Auto) 13.2 L [place] % (Auto) 14.4 H Eos % (Auto) 0.8 L Baso % (Auto) 0.2 Neut # (Auto) 5500 Lymph # (Auto) 1000 L [place] # (Auto) 1100 H Eos # (Auto) 100 Baso # (Auto) 0 PT 13.9 H INR 1.2 Sodium 135 L Potassium 3.9 Chloride 108 H Carbon Dioxide 23 BUN 47 H Creatinine 1.49 H Estimated GFR 36 L BUN/Creatinine Ratio 31.5 H Glucose 115 H Calcium 7.6 L PFSH Social History household members: other Smoking Status: Former smoker alcohol intake: current Assessment & Plan Post-op Postoperative Procedures: Procedures Operation Date: 09/15/22 17:15 Actual Procedure Side Surgeon p Intramedullary Nailing Femur Left Javon Whitt MD Postoperative day: 2 Postoperative status narrative: Stable Postoperative plan narrative: Weight bearing as tolerated on LLE. Should use walker at all times. Warfarin as taken preop for a fib should be sufficient for VTE prophylaxis; continue SCDs in hospital. Pain control per hospitalist service. (2) Acute postoperative anemia due to expected blood loss: VSS, making urine. No intervention appears to be needed at this time, but will defer to hospitalist service for monitoring and management. Quality VTE Deep Vein Thrombosis/Pulmonary Embolism Present on Admission: No
[2022-09-17] MEDS: LACTOBACILLUS ACIDOPHILUS TABLET 2 EACH PO ×2 (08:42→21:00)
[2022-09-17] MEDS: MULTIVITAMIN 1 TABLET 1 TAB PO (08:42)
[2022-09-17] MEDS: ENOXAPARIN 40 MG/0.4 ML SYRINGE SUBCUT (08:42)
[2022-09-17] MEDS: CHOLECALCIFEROL (VITAMIN D3) 1,000 UNIT TABLET 2000 UNIT PO (08:42)
[2022-09-17] MEDS: DOCUSATE 100 MG CAPSULE PO ×2 (08:43→21:01)
[2022-09-17] MEDS: ACETAMINOPHEN SUSP 650 MG/20.3 ML UDC 500 MG PO (08:43)
--- NOTE | 2022-09-17 08:44 | OT.IPNOTE ---
Pt to be getting blood as low HH 7.0 Hgb and 21.3 Hct, hold on OT eval.
[2022-09-17] MEDS: CALCIUM CARB/VIT D3 500/200 TABLET 1 EACH PO (08:47)
--- NOTE | 2022-09-17 11:02 | PT-OP ANOTE ---
Pt just started blood transfusion due to low HH 7.0 Hgb and 21.3 Hct, medical hold per nursing for am PT.
--- NOTE | 2022-09-17 15:12 | PM.PN.1 ---
Subjective Subjective Date Patient Seen: 09/17/22 Interval history: Patient more awake today. Hgb dropped to 7 overnight, no active bleeding and likely from surgery. Giving 2 units of blood. Exam Vital Signs (past 8 hours): - 09/17/22 08:26 09/17/22 09:33 09/17/22 10:33 Temperature 97.9 F 97.8 F Pulse Rate 100 H 100 H 86 Respiratory Rate 18 18 Blood Pressure 112/47 L 112/47 L 110/45 L Pulse Oximetry 94 Oxygen Flow Rate 0 09/17/22 10:38 09/17/22 10:55 09/17/22 10:55 Temperature 97.8 F 97.2 F L 97.2 F L Pulse Rate 86 100 H 100 H Respiratory Rate 18 18 18 Blood Pressure 110/45 L 117/52 L 117/52 L Pulse Oximetry Oxygen Flow Rate 09/17/22 13:25 Temperature 97.3 F L Pulse Rate 86 Respiratory Rate 18 Blood Pressure 110/52 L Pulse Oximetry Oxygen Flow Rate Oxygen Delivery Method Room Air Oxygen Flow Rate 0 Narrative Exam Narrative: GEN: no acute distress, appears pale HEENT: moist mucous membranes, PERRL NECK: trachea midline, no JVD CV: regular rate and rhythm, no murmurs PULM: clear bilaterally ABD: soft, nontender, nondistended, no organomegaly EXT: left leg postop dressing in place NEURO: awake, alert, oriented, no focal deficits Objective Labs 09/17/22 05:07 09/17/22 05:07 Labs: Laboratory Results - last 24 hr 09/14/22 09/14/22 09/17/22 13:22 13:50 05:07 WBC RBC Hgb Hct MCV MCH MCHC RDW Plt Count Neut % (Auto) Lymph % (Auto) [place] % (Auto) Eos % (Auto) Baso % (Auto) Neut # (Auto) Lymph # (Auto) [place] # (Auto) Eos # (Auto) Baso # (Auto) PT 13.9 H INR 1.2 Sodium 141 Potassium 5.0 Chloride 110 H Carbon Dioxide 24 BUN 22 H Creatinine 0.92 Estimated GFR > 60 BUN/Creatinine Ratio 23.9 H Glucose 111 H Calcium 8.7 Total Bilirubin 0.6 AST 25 ALT 20 Alkaline Phosphatase 110 Total Protein 6.6 Albumin 3.6 Globulin 3.0 Albumin/Globulin Ratio 1.2 Blood Type O Positive Antibody Screen Negative Crossmatch See Detail 09/17/22 09/17/22 05:07 05:07 WBC 7.8 RBC 2.32 L Hgb 7.0 L Hct 21.3 L MCV 91.6 MCH 30.0 MCHC 32.7 RDW 15.5 H Plt Count 106 L Neut % (Auto) 71.4 Lymph % (Auto) 13.2 L [place] % (Auto) 14.4 H Eos % (Auto) 0.8 L Baso % (Auto) 0.2 Neut # (Auto) 5500 Lymph # (Auto) 1000 L [place] # (Auto) 1100 H Eos # (Auto) 100 Baso # (Auto) 0 PT INR Sodium 135 L Potassium 3.9 Chloride 108 H Carbon Dioxide 23 BUN 47 H Creatinine 1.49 H Estimated GFR 36 L BUN/Creatinine Ratio 31.5 H Glucose 115 H Calcium 7.6 L Total Bilirubin AST ALT Alkaline Phosphatase Total Protein Albumin Globulin Albumin/Globulin Ratio Blood Type Antibody Screen Crossmatch [facility] Social History household members: other Smoking Status: Former smoker alcohol intake: current Assessment & Plan Assessment & Plan narrative: # ground level fall resulting in left mid-shaft displaced femur fracture s/p repair -Dr. Jose Eduardo romano consulting and took for surgery on 09/15 with left femoral noa placed -restarted warfarin with lovenox 40 daily to bridge -oxycodone and Dilaudid as needed for pain -PT/OT rec SNF # acute blood loss anemia -likely from surgery as no evidence of active bleeding -Hgb dropped from 8.8 to 7 -giving 2 units PRBCs # chronic atrial fibrillation -INR 3 then given Vit K and FFP prior to surgery, now 1.3 -warfarin restarted and on lovenox for bridge -daily INR checks # bipolar disorder -continue home seroquel, abilify and topamax # HTN, chronic -continue home amlodipine, holding lisinopril due to borderline high K # HLD, chronic -continue home statin # vascular dementia -continue home donepezil Code status is DNR. COVID negative. DVT prophylaxis with SCDs. Proxy is son Astrid. Dispo: Awaiting SNF and improvement in anemia. Time Spent With Patient Critical Care time: I spent a total of [] minutes of critical care time on this patient's care today; this time is exclusive of procedural time. Quality VTE Deep Vein Thrombosis/Pulmonary Embolism Present on Admission: No
--- NOTE | 2022-09-17 16:04 | CM.DPC ---
DCP: Spoke with Doris at [facility]. They will accept pt when she is medically stable for discharge. This CM notified pt and pts son. This CM reviewed psych medications with pt and son. 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 This CM updated Dr. Clements that [facility] will accept when pt is medically stable. Jeannine Chiang, bundle person
--- NOTE | 2022-09-17 16:20 | PT.IPTN ---
Current Diagnoses Acute posthemorrhagic anemia (09/14/22) Unspecified fracture of left femur, initial encounter for closed fracture (09/14/22) Other specified postprocedural states (09/14/22) Surgery Performed Operation Date: 09/15/22 17:15 Actual Procedures p Intramedullary Nailing Femur(Left) - Javon Whitt MD Physical Therapy Treatment Note M2 PT-IP Current Condition Start: 09/16/22 12:30 Freq: NEEDED Status: Active Protocol: Document 09/17/22 15:57 SP (Rec: 09/17/22 20:04 SP [id number]) Physical Therapy Current Condition Current Condition Evaluation Date 09/16/22 Treatment Diagnosis s/p fall; L hip fracture s/p ORIF; difficulty in walking Onset Date 09/14/22 M3 PT-IP Subjective Start: 09/16/22 12:30 Freq: NEEDED Status: Active Protocol: Document 09/17/22 15:57 SP (Rec: 09/17/22 20:04 SP [id number]) Subjective Physical Therapy Visit Type Type Treatment Note Visit Start Time 15:57 Visit Stop Time 16:20 Total Visit Minutes 23 Notes Family member in room, observed tx. Nurse assisted with 2nd person assist required throughout tx . 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 Therapy Pain Assessment Pain When Pain Assessed During Mobility Pain Present Pain Present Pain Reported Location Left Hip Scale Used reported pain with mobility, no rating given Description With Movement Pain Behaviors Facial Grimacing,Wincing Pain Management Techniques Distraction,Modification of Treatment,Re-positioning, Timing of Activity with Medications M4 PT-IP Mobility and Gait Start: 09/16/22 12:30 Freq: NEEDED Status: Active Protocol: Document 09/17/22 15:57 SP (Rec: 09/17/22 20:04 SP [id number]) PT-Bed Mobility Assessment Supine to Sit Supine to Sit Maximum Assistance,2 Person Assistance,Head of Bed Elevated,Bedrails Scooting Scooting to Edge of Bed Maximum Assistance PT-Transfer Assessment Sit to and From Stand Sit to and from Stand Maximum Assistance,2 Person Assistance,Use of Upper Extremities Equipment Transfer Assistive Device Gait Belt,Front Wheeled Walker Orthotic/Prosthetic Devices or Brace: No Transfers Transfer Destination Chair Transfer Technique Squat Pivot Transfer Ability Level of Assist Maximum Assistance,2 Person Assistance,Use of Upper Extremities Comments Mobility Comments supine>sit Max A x2 with support for trunk righting to sit and LE repositioning to EOB, scoot to EOB Max A x2-3 with use of transfer pad. STS EOB heavy Max A x2 w/ heavy use UEs on FWW, cued upright posturing approx 15 sec. Return sitting EOB, unableto reposition LEs. Squat pivot transfer to R, hand over hand RUE reach to opp chair arm Heavy Max A x3 bed>chair 45 deg angle, noted pt didn't ungrip LUE on bed so resisted transfer. Scoot back in chair Max A x2. Pt had call light and all needs in reach, nursing staff took over care for pt. Gait Assessment Comments Gait Comments unable at this time, STS and squat pivot transfer only completed. PT-Balance Assessment Sitting Balance and Reactions Static Sitting Balance Ability Fair Dynamic Sitting Balance Ability Fair Standing Balance and Reactions Static Standing Balance Ability Poor Dynamic Standing Balance Ability Poor Device Used FWW M5 PT-IP Objective Assessments Start: 09/16/22 12:30 Freq: NEEDED Status: Active Protocol: Document 09/16/22 10:17 AB (Rec: 09/16/22 12:46 AB [id number]) Orientation Orientation/Cognition Level of Alertness Alert Orientation Name Safety Awareness Decreased Safety Awareness Memory Description Short Term Impaired,Retirement Impaired Gross Range of Motion Lower Extremity ROM Assessment Within Functional Limits Strength Lower Extremity Strength Assessment Bilaterally Impaired Comments Strength Comments RLE: 3+/5 LLE: 3-/5 Muscle Tone Muscle Tone WNL Yes M6 PT-IP Treatment Start: 09/16/22 12:30 Freq: NEEDED Status: Active Protocol: Document 09/17/22 15:57 SP (Rec: 09/17/22 20:04 SP [id number]) Physical Therapy Treatment Education Education Provided Precautions,Weight Bearing Status,Safety M7 PT-IP Assessment and Plan Start: 09/16/22 12:30 Freq: NEEDED Status: Active Protocol: Document 09/17/22 15:57 SP (Rec: 09/17/22 20:04 SP [id number]) PT Summary Assessment and Plan Potential Rehabilitation Potential Fair Status of Condition at Evaluation Evolving Summary Impairments Pain,ROM,Strength,Balance, Coordination,Sensation,Tone, Cognition,Bed Mobility, Transfers,Gait,Activity Tolerance Progress Towards Goals Slow Progress due to Pain,Slow Progress due to Activity Tolerance Assessment Summary Max A x2-3 for bedmob, squat pivot transfer. Recommending [place] transfers at this time. Pt will require SNF to progress strength and functional mobility. Goals Bed Mobility Goal Minimal Assistance Transfer Goal Minimal Assistance,Front Wheeled Walker Gait Goal Minimal Assistance,Front Wheel Walker Gait Distance 50 Other Goals improve bed mobility, transfers, ambulation using FWW SBA 150 ft Days to Meet Goals 10 Frequency of Treatment Frequency Of Treatment Twice a Day Treatment Plan Physical Therapy Treatment Plan Bed Mobility Training,Transfer Training,Gait Training, Therapeutic Exercise,Balance Retraining,Post Op Education, Discharge Planning,Hot or Cold Pack,Neuromuscular Re-ed, Coordination Retraining,Manual Therapy Other Recommendations and Next Treatment post op warm up ex, bed mob, Focus increase endurance standing, transfers. Weight Bearing Status Weight Bearing Status Weight Bear as Tolerated Allowed Weight Bearing Amount (enter % LLE: WBAT or #) (%) Recommendations To Nursing Amount of Assist Needed Mechanical Lift Discharge Recommendations PT Discharge Recommendations SNF Rehab Transportation Needs at Discharge Wheelchair/Cabulance
[2022-09-17] MEDS: WARFARIN 5 MG TABLET PO (16:28)
[2022-09-17] MEDS: ACETAMINOPHEN 325 MG TABLET 650 MG PO (16:29)
--- NOTE | 2022-09-17 18:16 | PC.NURSE ---
Pt ordered to receive blood transfusion today. RN left message with Astrid for consent. Pt also consents although she is A&O 1-2. She states she has recieved blood products in the past. Soon returned call at 1015 and pt transfusion began. PT/OT having to defer morning session. She received 2 units of blood today, tolerating well. She is able to participate with PT, mod- max assist x2 to the chair with OT. She reports pain to L hip today controlled well from 5/10- 3/10 or less with tylenol. She has a good appetite and able to eat >50 of all of her meals. Her son is supportive at bedside.
[2022-09-17] MEDS: ARIPiprazole 10 MG TABLET PO (21:00)
[2022-09-17] MEDS: QUETIAPINE 100 MG TABLET 300 MG PO (21:00)
[2022-09-17] MEDS: DONEPEZIL 5 MG TABLET 10 MG PO (21:00)
[2022-09-17] MEDS: MELATONIN 3 MG TABLET 6 MG PO (21:00)
[2022-09-17] MEDS: MELATONIN 3 MG TABLET PO (21:00)
[2022-09-17] MEDS: TOPIRAMATE 100 MG TABLET PO (21:01)
[2022-09-17] MEDS: FISH OIL 1,000 MG CAPSULE 1000 MG PO (21:12)
[2022-09-18 00:09] VITALS: BP 121/42; PULSE 108; RESP 20; TEMP 36; O2SAT 95
[2022-09-18 03:50] VITALS: BP 122/52; PULSE 100; RESP 20; TEMP 36.7; O2SAT 95
[2022-09-18 05:51] LABS: INR 1.6 (0.9-1.3); Prothrombin Time 18.2 SECONDS (10.1-12.7)
[2022-09-18 05:55] LABS: BUN Creatinine Ratio 42.4 (6-22); Blood Urea Nitrogen 36 mg/dL (7-17); Calcium 7.8 mg/dL (8.4-10.2); Carbon Dioxide 22 mmol/L (22-32); Chloride 109 mmol/L (98-107); Estimated Glomerular Filt Rate > 60 mL/min (>60); Glucose 112 mg/dL (80-110); HEMOLYSIS < 15 (0-50); Potassium 3.9 mmol/L (3.4-5.1); Sodium 137 mmol/L (137-145)
[2022-09-18 05:56] LABS: Add Manual Diff / Slide Review NO; Basophils Absolute Auto 0 /uL (0-100); Basophils Percent Auto 0.4 % (0-2); Eosinophils Absolute Auto 100 /uL (0-450); Eosinophils Percent Auto 1.5 % (2-4); Hematocrit 26.4 % (36-46); Hemoglobin 8.9 g/dL (12.0-16.0); Lymphocytes Absolute Auto 900 /uL (1100-4500); Lymphocytes Percent Auto 13.6 % (25-40); Mean Corpuscular HGB Conc 33.6 % (30-36); Mean Corpuscular Hemoglobin 29.7 PG (26-34); Mean Corpuscular Volume 88.3 fL (80-100); Monocytes Absolute Auto 800 /uL (0-900); Neutrophils Absolute Auto 5000 /uL (1500-7000); Neutrophils Percent Auto 72.5 % (50-75); Platelet Count 100 X10^3/uL (150-400); Red Blood Cell Count 2.99 X10^6/uL (4.0-5.2); Red Cell Distribution Width 16.3 % (11.6-14.8); White Blood Cell Count 6.9 X10^3/uL (4.5-11.0)
--- NOTE | 2022-09-18 07:40 | PM.DS.1 ---
History of Present Illness History of Present Illness Date Patient Seen: 09/18/22 Chief complaint: GLF, mod trauma Narrative: Chen Graham is a 77-year-old female with past medical history of atrial fibrillation on warfarin who presents with left femur fracture following ground level fall. Patient states she was wearing slippery socks while doing laudry and slipped on the floor, landing on her left side. Is now having excruciating pain. XR of right hip in ED showed left displaced femur fracture. Patient's INR 2.8 so ortho deferred surgery until likely one more day. Patient currently states her pain is well controlled after pain medication. She has no other complaints. Denies CP, SOB, NV, abd pain or diarrhea. Discharge Providers Provider Date of admission: 09/14/22 13:50 Discharge Date: 09/18/22 Primary care physician: Mazin Alvarez MD Consults: 09/15/22 19:24 Consult to Discharge Planning Routine Comment: Consult to Physical Therapy Evaluate & Treat Comment: Physician Instructions: Evaluate and Treat 09/16/22 10:09 Consult to Occupational Therapy Evaluate & Treat Comment: Physician Instructions: Evaluate and treat Discharge provider: Yosvany Clements DO Summary Hospital Course Discharge Diagnosis: # ground level fall resulting in left mid-shaft displaced femur fracture s/p repair -Dr. Jose Eduardo romano consulting and took for surgery on 09/15 with left femoral noa placed -restarted warfarin with lovenox 40 daily to bridge until in range of 2-3 -oxycodone and Dilaudid as needed for pain -PT/OT rec SNF # acute blood loss anemia -likely from surgery as no evidence of active bleeding -Hgb dropped from 8.8 to 7 -gave 2 units PRBCs -Hgb now stable at 8.9 # chronic atrial fibrillation -INR 3 then given Vit K and FFP prior to surgery, down to 1.3 -warfarin restarted and on lovenox for bridge -daily INR checks # bipolar disorder -continue home seroquel, abilify and topamax -son worried her seroquel dose may be too high and leading to sedation, they will discuss this with her prescribing ACCESS REP # HTN, chronic -continue home amlodipine, holding lisinopril due to borderline high K # HLD, chronic -continue home statin # vascular dementia -continue home donepezil Hospital Course: Admitted for GLF resulting in left femoral shaft fracture which was repaired with a noa with ortho. Patient's INR high at 3 so given Vit K and FFP prior to surgery and now back on warfarin with lovenox bridge. She received 2 units of blood after surgery for operative blood loss anemia. She was discharged to SNF for ongoing rehab. Time Spent with Patient Time spent: Greater than 30 minutes Exam Vital Signs (past 8 hours): - 09/18/22 00:09 09/18/22 03:50 Temperature 96.8 F L 98.0 F Pulse Rate 108 H 100 H Respiratory Rate 20 20 Blood Pressure 121/42 L 122/52 L Pulse Oximetry 95 95 Oxygen Flow Rate 0 0 Oxygen Delivery Method Room Air Oxygen Flow Rate 0 Narrative Exam Narrative: GEN: no acute distress, appears pale HEENT: moist mucous membranes, PERRL NECK: trachea midline, no JVD CV: regular rate and rhythm, no murmurs PULM: clear bilaterally ABD: soft, nontender, nondistended, no organomegaly EXT: left leg postop dressing in place NEURO: awake, alert, oriented, no focal deficits Objective Labs 09/18/22 04:55 09/18/22 04:55 Labs: Laboratory Results - last 24 hr 09/14/22 09/14/22 09/18/22 13:22 13:50 04:55 WBC RBC Hgb Hct MCV MCH MCHC RDW Plt Count Neut % (Auto) Lymph % (Auto) [place] % (Auto) Eos % (Auto) Baso % (Auto) Neut # (Auto) Lymph # (Auto) [place] # (Auto) Eos # (Auto) Baso # (Auto) PT 18.2 H INR 1.6 H Sodium 141 Potassium 5.0 Chloride 110 H Carbon Dioxide 24 BUN 22 H Creatinine 0.92 Estimated GFR > 60 BUN/Creatinine Ratio 23.9 H Glucose 111 H Calcium 8.7 Total Bilirubin 0.6 AST 25 ALT 20 Alkaline Phosphatase 110 Total Protein 6.6 Albumin 3.6 Globulin 3.0 Albumin/Globulin Ratio 1.2 Blood Type O Positive Antibody Screen Negative Crossmatch See Detail 09/18/22 09/18/22 04:55 04:55 WBC 6.9 RBC 2.99 L Hgb 8.9 L Hct 26.4 L MCV 88.3 D MCH 29.7 MCHC 33.6 RDW 16.3 H Plt Count 100 L Neut % (Auto) 72.5 Lymph % (Auto) 13.6 L [place] % (Auto) 12.0 Eos % (Auto) 1.5 L Baso % (Auto) 0.4 Neut # (Auto) 5000 Lymph # (Auto) 900 L [place] # (Auto) 800 Eos # (Auto) 100 Baso # (Auto) 0 PT INR Sodium 137 Potassium 3.9 Chloride 109 H Carbon Dioxide 22 BUN 36 H Creatinine 0.85 Estimated GFR > 60 BUN/Creatinine Ratio 42.4 H Glucose 112 H Calcium 7.8 L Total Bilirubin AST ALT Alkaline Phosphatase Total Protein Albumin Globulin Albumin/Globulin Ratio Blood Type Antibody Screen Crossmatch [facility] Social History household members: other Smoking Status: Former smoker alcohol intake: current Discharge Plan Discharge orders & Medications Discharge Orders: Discharge (Order); Ordered 09/18/22 Ordered By: Yosvany Clements Prescriptions: New enoxaparin [Lovenox] 40 mg/0.4 mL Syringe 40 mg SUBCUT DAILY Qty: 4 0RF Rx Instructions: until INR in 2-3 range oxycodone 5 mg tablet 5 mg PO Q4H PRN (Reason: Pain, Moderate (4-6)) Qty: 30 0RF Continued acetaminophen 500 mg Capsule 500 mg PO DAILY multivitamin Tablet 1 tab PO DAILY atorvastatin [Lipitor] 40 mg Tablet 40 mg PO BEDTIME sennosides [Senokot] 8.6 mg Tablet 8.6 mg PO DAILY PRN (Reason: Constipation) quetiapine [Seroquel] 300 mg Tablet 300 mg PO BEDTIME polyethylene glycol 3350 [Miralax] 17 gram Powder In Packet 17 g PO DAILY PRN (Reason: Constipation) Coricidin HBP Chest Robert-Cough 10-200 mg Capsule 1 tab-cap PO BID PRN (Reason: Cough) hydrocodone-acetaminophen 5-325 mg Tablet 1 tab PO Q8H PRN (Reason: Pain, Moderate) donepezil [Aricept] 10 mg Tablet 10 mg PO BEDTIME warfarin 2.5 mg Tablet 2.5 mg PO WEEKLY Rx Instructions: on tuesdays (all other days are 5mg) amlodipine [Norvasc] 5 mg Tablet 7.5 mg PO BEDTIME biotin 10,000 mcg Capsule 10,000 mcg PO BEDTIME lisinopril [Zestril] 10 mg Tablet 20 mg PO DAILY lisinopril [Zestril] 10 mg Tablet 10 mg PO BEDTIME warfarin 5 mg Tablet 5 mg PO USEASDIRECTD Rx Instructions: Wed/Wed//Wed/Sat/Sun (takes 2.5mg on tuesdays) magnesium sulfate (bulk) [Epsom Salt] 100 % Crystals 1 applic miscellaneous 3XW PRN (Reason: Pain (Scale Score 4-6)) metoprolol succinate [Toprol XL] 25 mg Tablet Extended Release 24 Hr 25 mg PO DAILY estradiol [Estrace] 0.01 % (0.1 mg/gram) Cream 1 g VAGINAL 3XW Rx Instructions: wed/wed/wednesday topiramate [Topamax] 100 mg Tablet 100 mg PO BEDTIME glucosamine-chondroitin [Osteo Bi-Flex] 250-200 mg Tablet 1 tab PO DAILY Rx Instructions: in the evening aripiprazole [Abilify] 10 mg Tablet 10 mg PO BEDTIME cranberry extract 250 mg Tablet 500 mg PO DAILY phenyleph-shark [id number] Cream 1 applic topical Q6H PRN (Reason: Itching) calcium carbonate-vit D3-min 600 mg calcium- 400 unit Tablet 1 tab PO DAILY diclofenac sodium [Voltaren Arthritis Pain] 1 % Gel 2 g TOPICAL QID PRN (Reason: Pain (Scale Score 4-6)) Rx Instructions: apply to single elbow, wrist or hand; for hand includes palm/fingers/back of hand cholecalciferol (vitamin D3) 50 mcg (2,000 unit) Tablet 50 mcg PO DAILY tea tree oil 100 % Oil 1 ea TOPICAL BID Rx Instructions: apply to both feet melatonin 5 mg Capsule 5 mg PO BEDTIME Rx Instructions: take with 3mg to = 8mg acidophilus-pectin, citrus 100 million cell-10 mg Capsule 2 cap PO BID guaifenesin [Mucinex] 600 mg Tablet Extended Release 12hr 600 mg PO BID PRN (Reason: Cough) turmeric 400 mg Capsule 2,000 mg PO DAILY melatonin 3 mg Capsule 3 mg PO BEDTIME Rx Instructions: take with 5mg to = 8mg d-mannose 500 mg Capsule 1,000 mg PO BID [place] 3-6-9 1,200 mg capsule 1,200 mg PO BEDTIME Follow up/Referrals: Mazin Alvarez MD [Primary Care Provider] - 1 Month Diet/Activity/Treatments Diet: Regular Liquid consistency: Normal/Thin Food texture: Regular Catheter: 2-way [facility] Reason for rehabilitation: Post-operative therapy Rehab type: Physical therapy and Occupational therapy Visit Report/Discharge Packet Stand Alone Forms: Patient Portal/API Discharge Data Primary Care Provider: Mazin Alvarez Quality VTE Deep Vein Thrombosis/Pulmonary Embolism Present on Admission: No
--- NOTE | 2022-09-18 08:35 | P.PN_ITS ---
Subjective Subjective Date Patient Seen: 09/18/22 Time Patient Seen: 08:35 Interval history: Patient is awake lying in bed. She says she is doing well pain is well controlled with medication. She relates a fair understanding of next steps and states she is going to a rehab facility. Complaints of tingling to bilateral feet which she states was present before surgery. Exam Vital Signs (past 8 hours): - 09/18/22 03:50 Temperature 98.0 F Pulse Rate 100 H Respiratory Rate 20 Blood Pressure 122/52 L Pulse Oximetry 95 Oxygen Flow Rate 0 Oxygen Delivery Method Room Air Oxygen Flow Rate 0 Narrative Exam Narrative: Awake and alert to person place and situation at this time. Left hip bandages with minimal saturation of blood, intact. Strength 4/5 to left lower extremity. Strength and sensation intact to remainder of bilateral lower extremities. Left calf soft, compressible, nontender with no palpable cords or masses. Objective Labs 09/18/22 04:55 09/18/22 04:55 Labs: Laboratory Results - last 24 hr 09/14/22 09/14/22 09/18/22 13:22 13:50 04:55 WBC RBC Hgb Hct MCV MCH MCHC RDW Plt Count Neut % (Auto) Lymph % (Auto) [place] % (Auto) Eos % (Auto) Baso % (Auto) Neut # (Auto) Lymph # (Auto) [place] # (Auto) Eos # (Auto) Baso # (Auto) PT 18.2 H INR 1.6 H Sodium 141 Potassium 5.0 Chloride 110 H Carbon Dioxide 24 BUN 22 H Creatinine 0.92 Estimated GFR > 60 BUN/Creatinine Ratio 23.9 H Glucose 111 H Calcium 8.7 Total Bilirubin 0.6 AST 25 ALT 20 Alkaline Phosphatase 110 Total Protein 6.6 Albumin 3.6 Globulin 3.0 Albumin/Globulin Ratio 1.2 Blood Type O Positive Antibody Screen Negative Crossmatch See Detail 09/18/22 09/18/22 04:55 04:55 WBC 6.9 RBC 2.99 L Hgb 8.9 L Hct 26.4 L MCV 88.3 D MCH 29.7 MCHC 33.6 RDW 16.3 H Plt Count 100 L Neut % (Auto) 72.5 Lymph % (Auto) 13.6 L [place] % (Auto) 12.0 Eos % (Auto) 1.5 L Baso % (Auto) 0.4 Neut # (Auto) 5000 Lymph # (Auto) 900 L [place] # (Auto) 800 Eos # (Auto) 100 Baso # (Auto) 0 PT INR Sodium 137 Potassium 3.9 Chloride 109 H Carbon Dioxide 22 BUN 36 H Creatinine 0.85 Estimated GFR > 60 BUN/Creatinine Ratio 42.4 H Glucose 112 H Calcium 7.8 L Total Bilirubin AST ALT Alkaline Phosphatase Total Protein Albumin Globulin Albumin/Globulin Ratio Blood Type Antibody Screen Crossmatch [facility] Social History household members: other Smoking Status: Former smoker alcohol intake: current Assessment & Plan Post-op Postoperative Procedures: Procedures Operation Date: 09/15/22 17:15 Actual Procedure Side Surgeon p Intramedullary Nailing Femur Left Javon Whitt MD Postoperative day: 3 Postoperative status: doing well Postoperative plan: routine post-op care Postoperative plan narrative: Patient is postop day 3 status post ORIF of left femoral shaft with IM nail. She continues to work with physical therapy and is looking forward to discharging to rehab facility today. Plan to change dressings before discharge today. Keep dressings clean, dry, intact until f ollow up with Orthopedics 2 weeks after surgery. Quality VTE Deep Vein Thrombosis/Pulmonary Embolism Present on Admission: No
[2022-09-18] MEDS: METOPROLOL ER 25 MG TABLET PO (09:17)
[2022-09-18] MEDS: CHOLECALCIFEROL (VITAMIN D3) 1,000 UNIT TABLET 2000 UNIT PO (09:17)
[2022-09-18] MEDS: CALCIUM CARB/VIT D3 500/200 TABLET 1 EACH PO (09:17)
[2022-09-18] MEDS: ACETAMINOPHEN SUSP 650 MG/20.3 ML UDC 500 MG PO (09:17)
[2022-09-18] MEDS: LACTOBACILLUS ACIDOPHILUS TABLET 2 EACH PO (09:17)
[2022-09-18] MEDS: DOCUSATE 100 MG CAPSULE PO (09:17)
[2022-09-18] MEDS: MULTIVITAMIN 1 TABLET 1 TAB PO (09:18)
[2022-09-18] MEDS: ENOXAPARIN 40 MG/0.4 ML SYRINGE SUBCUT (09:19)
--- NOTE | 2022-09-18 09:25 | CM.DPC ---
DCP Cont: Patient is discharging to [facility] today. Spoke to Mon[facility] at [facility], confirmed picker and packer time of 1100. Dr. Clements completed orders, placed COVID swab, and ERICKA Delatorre certified ophthalmic surgical assistant, faxed over orders and DC Summary. Updated nurse, Ambrosio, and updated white board at main nurses's station. Packet was completed. PASSR also was already completed. P: Patient is discharging to [facility] today. Concepcion Medrano RN/Bobtailer
[2022-09-18 09:59] VITALS: PULSE 99
[2022-09-18 10:41] LABS: COVID19 -Nasal RAPID Negative (Negative)
--- NOTE | 2022-09-18 11:20 | PC.NURSE ---
Day shift: Pt left unit at approx 1120 via WC. She is going to [facility] today. Son in room for d/c and knows the plan. Dressing on left leg remains CDI. CMS ok. Pain well controlled per OCT. Pt has all personal belongings. PAcket given to transport person.
== END 2022-09-18 10:47 | DRG 481 ==
LOC: ED 13:50 → AC 13:51
PROVIDERS: Orthopaedic Surgery; Admitting Provider Student in an Organized Health Care Education/Training Program; Emergency Provider Emergency Medicine; PCP Internal Medicine; Referring Provider Emergency Medicine; Visit Provider Student in an Organized Health Care Education/Training Program
PROC: 0QS906Z Reposition Left Femoral Shaft with Intramedullary Internal Fixation Device, Open Approach (ICD-10-PCS; CPT 27245; principal; 2022-09-15 17:15)
DX: S72.302A Unspecified fracture of shaft of left femur, initial encounter for closed fracture (principal); D62 Acute posthemorrhagic anemia; I48.20 Chronic atrial fibrillation, unspecified; F31.9 Bipolar disorder, unspecified; I10 Essential (primary) hypertension; E78.5 Hyperlipidemia, unspecified; F01.50 Vascular dementia, unspecified severity, without behavioral disturbance, psychotic disturbance, mood disturbance, and anxiety; W01.0XXA Fall on same level from slipping, tripping and stumbling without subsequent striking against object, initial encounter; Z66 Do not resuscitate; Z20.822 Contact with and (suspected) exposure to COVID-19; Z87.891 Personal history of nicotine dependence; Z79.01 Long term (current) use of anticoagulants
CPT/HCPCS: 36415; 36430; 70450; 71045; 72125; 73502; 73552; 76000; 80048; 80053; 81001; 83036; 83605; 85025; 85610; 85730; 86850; 86900; 86901; 86927; 87635; 96374; 97163; 97530; 99284; C9803; P9016; P9040; A9270; J0690; J1100; J1170; J1650; J2405; J2704; J3010; J3430

== ENCOUNTER → 2023-03-04 20:27 | Outpatient (ROUT) | payer MEDICARE, OTHER, MEDICAID, SELFPAY ==
[2022-09-14 13:52] VITALS: BMI 29.1
[2023-03-04 20:50] LABS: Appearance Urine UA CLOUDY; Bilirubin Urine UA NEGATIVE (NEGATIVE); Color Urine UA YELLOW; Glucose Urine UA NEGATIVE (Negative); Ketones Urine UA NEGATIVE (NEGATIVE); Leukocyte Esterase Urine UA 3+ (NEGATIVE); Nitrite Urine UA NEGATIVE (Negative); Occult Blood Urine UA 2+ (Negative); Protein Urine UA 1+ (Negative); Specific Gravity Urine UA 1.015 (1.000-1.035); Urobilinogen Urine UA 0.2 E.U./dL (0.2); pH Urine UA 6.5 (4.5-8.0)
[2023-03-04 20:53] LABS: Amorphous Sediment Urine 1+; Bacteria Urine Many (>30); RBC Urine 1-5/HPF (0-5/HPF); Renal Epithelial Cells Urine 5-10/HPF (0-1/HPF); Squamous Epithelial Cell Urine 5-10 /HPF (0-5/HPF); WBC Urine 10-30/HPF (0-5/HPF)
== END ==
PROVIDERS: PCP Internal Medicine; Visit Provider Nurse Practitioner Family
DX: E86.0 Dehydration (principal); R41.0 Disorientation, unspecified; R79.9 Abnormal finding of blood chemistry, unspecified
CPT/HCPCS: 81001; 87077; 87086; 87186

== ENCOUNTER → 2023-03-24 07:55 | Outpatient (ROUT) | payer MEDICARE, OTHER, MEDICAID, SELFPAY ==
[2022-09-14 13:52] VITALS: BMI 29.1
[2023-03-24 08:03] LABS: Appearance Urine UA CLOUDY; Bilirubin Urine UA NEGATIVE (NEGATIVE); Color Urine UA YELLOW; Glucose Urine UA NEGATIVE (Negative); Ketones Urine UA NEGATIVE (NEGATIVE); Leukocyte Esterase Urine UA 3+ (NEGATIVE); Nitrite Urine UA NEGATIVE (Negative); Occult Blood Urine UA 1+ (Negative); Protein Urine UA 2+ (Negative); Urobilinogen Urine UA 0.2 E.U./dL (0.2)
[2023-03-24 08:09] LABS: RBC Urine 5-10/HPF (0-5/HPF); WBC Urine >100/HPF (0-5/HPF)
[2023-03-24 08:10] LABS: Bacteria Urine Moderate (10-30); Culture Indicated Urine Specimen Cultured; Squamous Epithelial Cell Urine 5-10 /HPF (0-5/HPF)
== END ==
PROVIDERS: PCP Internal Medicine; Visit Provider Nurse Practitioner Family
DX: I48.20 Chronic atrial fibrillation, unspecified (principal)
CPT/HCPCS: 81001; 87077; 87086; 87186

== ENCOUNTER → 2023-07-07 09:53 | Outpatient (ROUT) | payer MEDICARE, OTHER, MEDICAID, SELFPAY ==
[2022-09-14 13:52] VITALS: BMI 29.1
[2023-07-07 10:01] LABS: Appearance Urine UA CLOUDY; Bilirubin Urine UA NEGATIVE (NEGATIVE); Color Urine UA YELLOW; Glucose Urine UA NEGATIVE (Negative); Ketones Urine UA NEGATIVE (NEGATIVE); Leukocyte Esterase Urine UA 3+ (NEGATIVE); Nitrite Urine UA POSITIVE (Negative); Occult Blood Urine UA 3+ (Negative); Protein Urine UA 1+ (Negative); Specific Gravity Urine UA 1.015 (1.000-1.035); Urobilinogen Urine UA 0.2 E.U./dL (0.2)
[2023-07-07 10:08] LABS: Bacteria Urine Many (>30); Culture Indicated Urine Specimen Cultured; RBC Urine 1-5/HPF (0-5/HPF); Squamous Epithelial Cell Urine None Seen (0-5/HPF); WBC Urine 30-100/HPF (0-5/HPF)
== END ==
PROVIDERS: PCP Internal Medicine; Visit Provider Registered Nurse
DX: N39.0 Urinary tract infection, site not specified (principal)
CPT/HCPCS: 81001; 87077; 87086; 87186

== ENCOUNTER → 2023-09-07 21:38 | Outpatient (ROUT) | payer MEDICARE, OTHER, MEDICAID, SELFPAY ==
[2022-09-14 13:52] VITALS: BMI 29.1
[2023-09-07 21:43] LABS: Urine Volume 10mL (spun)
[2023-09-07 21:48] LABS: Bilirubin Urine UA NEGATIVE (NEGATIVE); Color Urine UA YELLOW; Glucose Urine UA NEGATIVE (Negative); Ketones Urine UA NEGATIVE (NEGATIVE); Leukocyte Esterase Urine UA 3+ (NEGATIVE); Nitrite Urine UA NEGATIVE (Negative); Occult Blood Urine UA 1+ (Negative); Protein Urine UA 2+ (Negative); Urobilinogen Urine UA 0.2 E.U./dL (0.2); pH Urine UA 5.5 (4.5-8.0)
[2023-09-07 21:49] LABS: Appearance Urine UA CLOUDY
[2023-09-07 21:56] LABS: Bacteria Urine Many (>30); Culture Indicated Urine Specimen Cultured; RBC Urine None Seen (0-5/HPF); Squamous Epithelial Cell Urine 0-1 /HPF (0-5/HPF); WBC Urine >100/HPF (0-5/HPF)
== END ==
PROVIDERS: PCP Internal Medicine; Visit Provider Nurse Practitioner
DX: N39.0 Urinary tract infection, site not specified (principal)
CPT/HCPCS: 81001; 87077; 87086; 87186

== ENCOUNTER 2023-09-20 07:37 | Emergency (ER) | payer MEDICARE, OTHER, MEDICAID, SELFPAY ==
[2022-09-14 13:52] VITALS: BMI 29.1
[2023-09-20] VITALS (11 sets, daily range): BP systolic 126–162; BP diastolic 55–70; PULSE 50–95; RESP 15–18; TEMP 36.2–37.1; O2SAT 99–100
--- NOTE | 2023-09-20 07:39 | DI.CT.S_ITS ---
PROCEDURE: CT ANGIO HEAD AND NECK INDICATIONS: altered, unresponsive TECHNIQUE: After the administration of intravenous contrast, 1 mm thick sections acquired from the aortic arch through the [place]. 3-dimensional qzgykbb-uzrivkium-maqrbijdli (MIP) and/or volume rendering reformats were acquired of the central intracranial vasculature and neck separately. For radiation dose reduction, the following was used: automated exposure control, adjustment of mA and/or kV according to patient size. COMPARISON: None. FINDINGS: Image quality: Diagnostic. BRAIN: CSF spaces: Ventricles are normal in size and shape. Basal cisterns are patent. No extra-axial fluid collections. Brain: No significant abnormality of the brain can be seen. Skull and face: Calvarium and facial bones appear intact, without suspicious lesions. Orbits appear normal. Sinuses: Sinuses and mastoids are clear. HEAD CT ANGIOGRAPHY: Anterior circulation: Moderate atherosclerotic plaques of the intracranial ICAs without high-grade stenosis.. The flow within the paired anterior cerebral arteries is normal and symmetric. There is a large vessel occlusion within the proximal left M2 segment (series 2 images 83 through 87). The anterior communicating artery is seen. No aneurysms are seen. Posterior circulation: Visualized portions of the vertebral arteries demonstrate normal caliber, and join to form a normal appearing basilar artery. Large contribution of the right [employer]. Flow within the posterior cerebral arteries is normal and symmetric. No aneurysms are seen. NECK CT ANGIOGRAPHY: Carotid system: The great vessels demonstrate a bone anatomy as they arise from the aortic arch with atherosclerotic calcifications. The origins of the common carotid arteries appear patent. The common carotid arteries demonstrate normal caliber and courses. Coarse calcifications of the bilateral carotid bulbs. There is moderate, approximately 50 percent stenosis of the right proximal ICA. No stenosis of the left ICA. Posterior circulation: The origins of the vertebral arteries both appear widely patent. The more superior extracranial portions of both vertebral arteries also demonstrate normal courses and calibers. They join to form a normal appearing basilar artery. Soft tissues: Visualized neck soft tissues demonstrate no suspicious abnormalities. Thyroid gland is heterogeneous with multiple subcentimeter nodules. Bones: No suspicious bony lesions. Multilevel degenerative changes of the cervical spine. Grade 1 anterolisthesis of C7 on T1.. 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 Atherosclerotic calcifications in approximately 50 percent stenosis of the right proximal ICA. Otherwise, no significant abnormality is seen within the arteries of the neck. Any quantitative measurements of stenosis were performed using NASCET criteria. Findings were discussed with Dr. Stanford at 8:35 a.m. On 09/20/2023. Dictated by: James Camara M.D. on 09/20/2023 at 8:36 Approved by: James Camara M.D. on 09/20/2023 at 8:43
--- NOTE | 2023-09-20 07:40 | DI.CT.S_ITS ---
PROCEDURE: CT HEAD/BRAIN WO CON INDICATIONS: altered, unresponsive TECHNIQUE: Noncontrast 4.5 mm thick angled axial sections acquired from the foramen magnum to the vertex, with coronal and sagittal reformats. For radiation dose reduction, the following was used: automated exposure control, adjustment of mA and/or kV according to patient size. COMPARISON: [facility], CT, CT HEAD/BRAIN WO CON, 09/14/2022, 13:01. FINDINGS: Image quality: Diagnostic. CSF spaces: Basal cisterns are patent. No extra-axial fluid collections. The ventricles are symmetric in size and shape. Brain: There is asymmetric decreased attenuation within the left frontal lobe and insula. Right frontal encephalomalacia is redemonstrated. Additional small area of gliosis/encephalomalacia within the right parietal lobe. No intracranial bleeds or masses. There is cerebral volume loss for age, with resultant ventricular and sulcal prominence. There are periventricular and deep white matter chronic small vessel ischemic changes. There is intracranial internal carotid artery atherosclerosis. Skull and face: Calvarium and visualized facial bones appear intact, without suspicious lesions. Sinuses: Visualized sinuses and mastoids are clear. IMPRESSION: Asymmetric decreased attenuation within the left frontal lobe. Findings consistent acute infarct. No acute intracranial hemorrhage. Findings discussed with Dr. Stanford at 8:35 a.m. On 09/20/2023. Dictated by: James Camara M.D. on 09/20/2023 at 8:23 Approved by: James Camara M.D. on 09/20/2023 at 8:36
--- NOTE | 2023-09-20 07:46 | ED_ITS ---
HPI - Altered Mental Status General Chief Complaint: Unresponsive Stated Complaint: unresponsive Time Seen by Provider: 09/20/23 07:39 Source: patient and RN notes reviewed Mode of arrival: EMS Limitations: altered mental status History of Present Illness HPI narrative: 78-year-old female with history of benign carcinoid tumor of the lung, atrial fibrillation, diabetes, hypertension, bipolar, vascular dementia, prior strokes anticoagulated on warfarin who had a recent femoral fracture and was hospitalized on the 14 of September and discharged to SNF postoperatively. Patient presents with complaint of altered mental status. EMS states that she has been essentially unresponsive but seems to be protecting her airway they note pupils were a little bit small but not hypoxic. She has been on oral anticoagulation for her recent femoral fracture. No reported history of seizure activity, patient is unable to participate in evaluation. No recent reported trauma by staff patient is back on warfarin. Patient arrives with POLST she is DNR/DNI limited intervention. Related Data Home Medications Medication Instructions Recorded Confirmed [place] 3-6-9 1,200 mg PO BEDTIME 09/14/22 09/14/22 acetaminophen 500 mg capsule 500 mg PO DAILY 09/14/22 09/14/22 acidophilus 100 million 2 cap PO BID 09/14/22 09/14/22 cell-pectin, citrus 10 mg capsule amlodipine 5 mg tablet (Norvasc) 7.5 mg PO BEDTIME 09/14/22 09/14/22 aripiprazole 10 mg tablet (Abilify) 10 mg PO BEDTIME 09/14/22 09/14/22 atorvastatin 40 mg tablet (Lipitor) 40 mg PO BEDTIME 09/14/22 09/14/22 biotin 10,000 mcg capsule 10,000 mcg PO BEDTIME 09/14/22 09/14/22 calcium carb-vit D3-minerals 600 1 tab PO DAILY 09/14/22 09/14/22 mg calcium-400 unit tablet cholecalciferol (vitamin D3) 50 50 mcg PO DAILY 09/14/22 09/14/22 mcg (2,000 unit) tablet cranberry extract 250 mg tablet 500 mg PO DAILY 09/14/22 09/14/22 d-mannose 500 mg capsule 1,000 mg PO BID 09/14/22 09/14/22 dextromethorphan-guaifenesin 10 1 tab-cap PO BID PRN Cough 09/14/22 09/14/22 mg-200 mg capsule (Coricidin HBP Chest Congestion-Cough) diclofenac sodium 1 % topical gel 2 g topical QID PRN Pain (Scale 09/14/22 09/14/22 (Voltaren Arthritis Pain) Score 4-6) donepezil 10 mg tablet (Aricept) 10 mg PO BEDTIME 09/14/22 09/14/22 estradiol 0.01% (0.1 mg/gram) 1 g vaginal 3XW 09/14/22 09/14/22 vaginal cream (Estrace) glucosamine-chondroitin 250 mg-200 1 tab PO DAILY 09/14/22 09/14/22 mg tablet (Osteo Bi-Flex) guaifenesin 600 mg tablet, 600 mg PO BID PRN Cough 09/14/22 09/14/22 extended release 12 hr (Mucinex) lisinopril 10 mg tablet (Zestril) 10 mg PO BEDTIME 09/14/22 09/14/22 lisinopril 10 mg tablet (Zestril) 20 mg PO DAILY 09/14/22 09/14/22 magnesium sulfate (bulk) 100 % 1 applic miscellaneous 3XW PRN 09/14/22 09/14/22 crystals (Epsom Salt) Pain (Scale Score 4-6) melatonin 3 mg capsule 3 mg PO BEDTIME 09/14/22 09/14/22 melatonin 5 mg capsule 5 mg PO BEDTIME 09/14/22 09/14/22 metoprolol succinate 25 mg 25 mg PO DAILY 09/14/22 09/14/22 tablet,extended release 24 hr (Toprol XL) multivitamin 1 tab PO DAILY 09/14/22 09/14/22 phenyleph-shark liver 1 applic topical Q6H PRN Itching 09/14/22 09/14/22 [id number] rectal cream polyethylene glycol 3350 17 gram 17 g PO DAILY PRN Constipation 09/14/22 09/14/22 oral powder packet (Miralax) quetiapine 300 mg tablet (Seroquel) 300 mg PO BEDTIME 09/14/22 09/14/22 sennosides 8.6 mg tablet (Senokot) 8.6 mg PO DAILY PRN Constipation 09/14/22 09/14/22 tea tree oil 100 % topical 1 ea topical BID 09/14/22 09/14/22 topiramate 100 mg tablet (Topamax) 100 mg PO BEDTIME 09/14/22 09/14/22 turmeric 400 mg capsule 2,000 mg PO DAILY 09/14/22 09/14/22 warfarin 2.5 mg tablet 2.5 mg PO WEEKLY 09/14/22 09/14/22 warfarin 5 mg tablet 5 mg PO USEASDIRECTD 09/14/22 09/14/22 Previous Rx's Medication Instructions Recorded enoxaparin 40 mg/0.4 mL 40 mg (0.4 mL) SUBCUT DAILY #4 mL 09/18/22 subcutaneous syringe (Lovenox) hydrocodone 5 mg-acetaminophen 325 1 tab PO Q4H PRN Pain, Moderate 09/18/22 mg tablet #30 tabs Allergies Allergy/AdvReac Type Severity Reaction Status Date / Time No Known Drug Allergies Allergy Verified 09/14/22 12:03 Review of Systems Review of Systems ROS Unobtainable: Unobtainable due to mental status/LOC Patient History Social History household members: other Smoking Status: Former smoker alcohol intake: current Smoking Status: Former smoker alcohol intake frequency: holidays/special occasions only Substance Use Type: does not use Exam Narrative Exam Narrative: GEN: Obese elderly female, responsive painful stimuli, patient appears to be in moderate to severe distress. HEENT: Atraumatic, pupils are equal round pinpoint bilaterally, extraocular movements are intact, nares are clear, there is no conjunctival pallor. Throat is clear without any exudates, erythema, tonsillar enlargement or uvular deviation HEART: Regular rate and rhythm without murmur, clicks, rubs. Pulses are equal in upper and lower extremities LUNGS:Lungs clear to auscultation, no wheezes, rales, crackles, chest moves symmetrically ABD:bowel sounds normal, nondistended, soft, non-tender, no guarding, rebound, rigidity, no masses noted, no hepatosplenomegaly :No CVA tenderness MSCL: Non-tender, no muscle atrophy, no erythema or deformity. NEURO:CN 2-12 intact, sensation normal, patient has mild tremor upper bilateral extremities. When her left arm is lifted she seems to move it somewhat intentionally down, right arm drops. Bilateral lower extremities she pulls back with Babinski. Patient does not respond to verbal stimuli. Initial Vital Signs Initial Vital Signs: Vital Signs Pulse Rate 53 L 09/20/23 07:55 Respiratory Rate 18 09/20/23 07:55 Pulse Oximetry 99 09/20/23 07:55 Course Orders Ordered: Discontinued Medications Sodium Chloride (Normal Saline 0.9%) 1,000 mls @ 150 mls/hr IV CONT [place] Last Infusion: 09/20/23 08:38 Dose: Infused Documented By: Admin: 09/20/23 08:09 Dose: 150 mls/hr Documented By: LISETH Sodium Chloride (Normal Saline 0.9%) 1,000 mls @ 1,000 mls/hr IV BOLUS ONE Stop: 09/20/23 09:18 Last Infusion: 09/20/23 09:52 Dose: Infused Documented By: Admin: 09/20/23 08:43 Dose: 1,000 mls/hr Documented By: LISETH Ceftriaxone Sodium 2,000 mg/ (Sodium Chloride) 100 mls @ 200 mls/hr IV NOW ONE Stop: 09/20/23 09:35 Last Infusion: 09/20/23 09:52 Dose: 200 mls/hr Documented By: Admin: 09/20/23 09:48 Dose: 200 mls/hr Documented By: LISETH Naloxone HCl (Naloxone 0.4 Mg/Ml Vial) 0.1 mg IV Q2MIN PRN PRN Reason: Opiate Reversal Last Admin: 09/20/23 07:55 Dose: 0.1 mg Documented By: LISETH Vital Signs Vital signs: Vital Signs - 8 hr 09/20/23 07:55 09/20/23 08:00 09/20/23 08:00 Temperature Pulse Rate 53 L 50 L Respiratory Rate 18 17 Blood Pressure 131/59 L Pulse Oximetry 99 100 Oxygen Delivery Method 09/20/23 08:01 09/20/23 08:30 09/20/23 08:43 Temperature 98.7 F 97.2 F L Pulse Rate 50 L 74 51 L Respiratory Rate 16 16 16 Blood Pressure 131/59 L Pulse Oximetry 100 100 100 Oxygen Delivery Method Room Air 09/20/23 08:43 09/20/23 08:45 09/20/23 08:45 Temperature 97.2 F L Pulse Rate 51 L Respiratory Rate 15 Blood Pressure 142/62 H 126/55 L Pulse Oximetry 100 Oxygen Delivery Method 09/20/23 09:00 09/20/23 09:01 09/20/23 09:01 Temperature 97.2 F L 97.2 F L Pulse Rate 95 H 54 L Respiratory Rate 18 17 Blood Pressure 144/64 H Pulse Oximetry 100 100 Oxygen Delivery Method 09/20/23 09:15 09/20/23 09:15 09/20/23 09:30 Temperature 97.2 F L Pulse Rate 54 L Respiratory Rate 15 Blood Pressure 142/63 H 143/58 H Pulse Oximetry 100 Oxygen Delivery Method 09/20/23 09:30 09/20/23 09:48 09/20/23 09:48 Temperature 97.2 F L 97.2 F L Pulse Rate 54 L Respiratory Rate 18 Blood Pressure 162/70 H Pulse Oximetry 100 Oxygen Delivery Method MDM - Altered Mental Status Lab Data 09/20/23 07:40 09/20/23 07:40 Labs: Lab Results 09/20/23 09/20/23 09/20/23 Range/Units 07:40 08:25 08:25 WBC 6.0 (4.5-11.0) X10^3/uL RBC 3.47 L (4.0-5.2) X10^6/uL Hgb 10.6 L (12.0-16.0) g/dL Hct 32.4 L (36-46) % MCV 93.2 (80-100) fL MCH 30.5 (26-34) PG MCHC 32.7 (30-36) % RDW 15.9 H (11.6-14.8) % Plt Count 228 (150-400) X10^3/uL Neut % (Auto) 68.5 (50-75) % Lymph % (Auto) 19.1 L (25-40) % [place] % (Auto) 10.4 (3-14) % Eos % (Auto) 1.2 L (2-4) % Baso % (Auto) 0.8 (0-2) % Neut # (Auto) 4100 (7440-8633) /uL Lymph # (Auto) 1100 (9317-6795) /uL [place] # (Auto) 600 (0-900) /uL Eos # (Auto) 100 (0-450) /uL Baso # (Auto) 0 (0-100) /uL PT 23.5 H (9.4-12.5) SECONDS INR 2.0 H (0.9-1.3) APTT 40 H (25.1-36.5) SECONDS ABG Sample Site ABG pH (7.35-7.45) ABG pCO2 (35-45) mmHg ABG pO2 (80-100) mmHg ABG HCO3 (23-27) mmol/L ABG Total CO2 (23-27) mmol/L ABG O2 Saturation (95-100) % ABG Base Excess (-2-3) mmol/L FiO2 Sodium 140 (137-145) mmol/L Potassium 5.5 H (3.4-5.1) mmol/L Chloride 111 H (98-107) mmol/L Carbon Dioxide 21 L (22-32) mmol/L BUN 72 H (7-17) mg/dL Creatinine 3.37 H (0.52-1.04) mg/dL Estimated GFR 13 L (>60) mL/min BUN/Creatinine Ratio 21.4 (6-22) Glucose 101 (80-110) mg/dL Lactate 1.3 (0.7-2.1) mmol/L Calcium 9.4 (8.4-10.2) mg/dL Total Bilirubin 0.6 (0.2-1.3) mg/dL AST 19 (14-36) IU/L ALT 14 (<35) IU/L Alkaline Phosphatase 116 (38-126) U/L Ammonia (9-30) umol/L Total Creatine Kinase 63 (30-135) U/L Troponin I 0.020 (0.01-0.034) ng/mL Total Protein 7.3 (6.3-8.2) g/dL Albumin 3.9 (3.5-5.0) g/dL Globulin 3.4 (1.7-4.1) g/dL Albumin/Globulin Ratio 1.1 (1.0-2.8) TSH 2.05 (0.47-4.68) uIU/mL Prolactin 11.7 (3.0-18.6) ng/mL Urine Color Yellow Urine Appearance Cloudy Urine pH 6.0 Normal (4.5-8.0) Ur Specific [place] 1.015 (1.000-1.035) Urine Protein 1+ H (Negative) Urine Glucose (UA) Negative (Negative) g/dL Urine Ketones Negative (NEGATIVE) Urine Occult Blood Negative (Negative) Urine Nitrate Positive H (Negative) Urine Bilirubin Negative (NEGATIVE) Urine Urobilinogen Normal (0.2) E.U./dL Ur Leukocyte Esterase 3+ H (NEGATIVE) Urine RBC None seen (0-5/HPF) Urine WBC 30-100/hpf H (0-5/HPF) Ur Squamous Epith Cells 0-1 /hpf (0-5/HPF) Urine Bacteria Many (>30) H (None) Vol Urine Centrifuged 10ml (spun) Salicylates < 1.0 (<20) mg/dL U Opiates 300ng/mL cut Negative (Negative) Ur Oxycodone Screen Negative (Negative) Urine Methadone Screen Negative (Negative) Acetaminophen < 10 (10-30) ug/mL Ur Barbiturates Screen Negative (Negative) U Tricyclic Antidepress Negative (Negative) Ur Phencyclidine Scrn Negative (Negative) Ur Amphetamines Screen Negative (Negative) U Methamphetamines Scrn Negative (Negative) Ur MDMA Scrn (Ecstasy) Negative (Negative) U Benzodiazepines Scrn Negative (Negative) Urine Cocaine Screen Negative (Negative) U Marijuana (THC) Screen Negative (Negative) Urine Specific [place] Normal (Normal) Ethyl Alcohol < 10 ( - 10) mg/dL Ur Creatinine Normal (Normal) 09/20/23 09/20/23 Range/Units 08:30 08:33 WBC (4.5-11.0) X10^3/uL RBC (4.0-5.2) X10^6/uL Hgb (12.0-16.0) g/dL Hct (36-46) % MCV (80-100) fL MCH (26-34) PG MCHC (30-36) % RDW (11.6-14.8) % Plt Count (150-400) X10^3/uL Neut % (Auto) (50-75) % Lymph % (Auto) (25-40) % [place] % (Auto) (3-14) % Eos % (Auto) (2-4) % Baso % (Auto) (0-2) % Neut # (Auto) (0255-8596) /uL Lymph # (Auto) (7772-4854) /uL [place] # (Auto) (0-900) /uL Eos # (Auto) (0-450) /uL Baso # (Auto) (0-100) /uL PT (9.4-12.5) SECONDS INR (0.9-1.3) APTT (25.1-36.5) SECONDS ABG Sample Site Right radial ABG pH 7.34 L (7.35-7.45) ABG pCO2 32.5 L (35-45) mmHg ABG pO2 96 (80-100) mmHg ABG HCO3 18 L (23-27) mmol/L ABG Total CO2 19 L (23-27) mmol/L ABG O2 Saturation 97 (95-100) % ABG Base Excess -8.0 L (-2-3) mmol/L FiO2 21 Sodium (137-145) mmol/L Potassium (3.4-5.1) mmol/L Chloride (98-107) mmol/L Carbon Dioxide (22-32) mmol/L BUN (7-17) mg/dL Creatinine (0.52-1.04) mg/dL Estimated GFR (>60) mL/min BUN/Creatinine Ratio (6-22) Glucose (80-110) mg/dL Lactate (0.7-2.1) mmol/L Calcium (8.4-10.2) mg/dL Total Bilirubin (0.2-1.3) mg/dL AST (14-36) IU/L ALT (<35) IU/L Alkaline Phosphatase (38-126) U/L Ammonia < 9 L (9-30) umol/L Total Creatine Kinase (30-135) U/L Troponin I (0.01-0.034) ng/mL Total Protein (6.3-8.2) g/dL Albumin (3.5-5.0) g/dL Globulin (1.7-4.1) g/dL Albumin/Globulin Ratio (1.0-2.8) TSH (0.47-4.68) uIU/mL Prolactin (3.0-18.6) ng/mL Urine Color Urine Appearance Urine pH (4.5-8.0) Ur Specific [place] (1.000-1.035) Urine Protein (Negative) Urine Glucose (UA) (Negative) g/dL Urine Ketones (NEGATIVE) Urine Occult Blood (Negative) Urine Nitrate (Negative) Urine Bilirubin (NEGATIVE) Urine Urobilinogen (0.2) E.U./dL Ur Leukocyte Esterase (NEGATIVE) Urine RBC (0-5/HPF) Urine WBC (0-5/HPF) Ur Squamous Epith Cells (0-5/HPF) Urine Bacteria (None) Vol Urine Centrifuged Salicylates (<20) mg/dL U Opiates 300ng/mL cut (Negative) Ur Oxycodone Screen (Negative) Urine Methadone Screen (Negative) Acetaminophen (10-30) ug/mL Ur Barbiturates Screen (Negative) U Tricyclic Antidepress (Negative) Ur Phencyclidine Scrn (Negative) Ur Amphetamines Screen (Negative) U Methamphetamines Scrn (Negative) Ur MDMA Scrn (Ecstasy) (Negative) U Benzodiazepines Scrn (Negative) Urine Cocaine Screen (Negative) U Marijuana (THC) Screen (Negative) Urine Specific [place] (Normal) Ethyl Alcohol ( - 10) mg/dL Ur Creatinine (Normal) Point of Care Testing Glucose POC [address] scan - head: Radiologist's Impression: Close Head CT (Signed) James Camara - 09/20/23 Head/Neck CTA 09/20/23 Femur X-Ray (Signed) Cecile Stevens - 09/15/22 Telemetry Strips 09/14/22 Femur X-Ray (Signed) Maggy Mercado - 09/14/22 Hip X-Ray (Signed) Maggy Mercado - 09/14/[address] (Signed) Kasia Garza - 09/14/[address] (Signed) Kasia Garza - 09/14/22 Chest X-Ray (Signed) Maggy Mercado - 09/14/22 [place] [address] CT Scan Report Signed Patient: Saleem Graham MR#: [id number] : 1945 Acct:[id number] Age/Sex: 78 / F Date of Service: 09/20/23 Loc: ED Accession Number: [id number] Procedure: CT head/brain wo con Ordering Provider: Patricia Stanford D.O. PROCEDURE: CT HEAD/BRAIN WO CON INDICATIONS: altered, unresponsive TECHNIQUE: Noncontrast 4.5 mm thick angled axial sections acquired from the foramen magnum to the vertex, with coronal and sagittal reformats. For radiation dose reduction, the following was used: automated exposure control, adjustment of mA and/or kV according to patient size. COMPARISON: [facility], CT, CT HEAD/BRAIN WO CON, 09/14/2022, 13:01. FINDINGS: Image quality: Diagnostic. CSF spaces: Basal cisterns are patent. No extra-axial fluid collections. The ventricles are symmetric in size and shape. Brain: There is asymmetric decreased attenuation within the left frontal lobe and insula. Right frontal encephalomalacia is redemonstrated. Additional small area of gliosis/encephalomalacia within the right parietal lobe. No intracranial bleeds or masses. There is cerebral volume loss for age, with resultant ventricular and sulcal prominence. There are periventricular and deep white matter chronic small vessel ischemic changes. There is intracranial internal carotid artery atherosclerosis. Skull and face: Calvarium and visualized facial bones appear intact, without suspicious lesions. Sinuses: Visualized sinuses and mastoids are clear. IMPRESSION: Asymmetric decreased attenuation within the left frontal lobe. Findings consistent acute infarct. No acute intracranial hemorrhage. Findings discussed with Dr. Stanford at 8:35 a.m. On 09/20/2023. Dictated by: James Camara M.D. on 09/20/2023 at 8:23 Approved by: James Camara M.D. on 09/20/2023 at 8:36 CTA - brain/neck: Radiologist's Impression: Close Head CT (Signed) James Camara - 09/20/23 Head/Neck CTA (Signed) James Camara - 09/20/23 Femur X-Ray (Signed) Cecile Stevens - 09/15/22 Telemetry Strips 09/14/22 Femur X-Ray (Signed) Maggy Mercado - 09/14/22 Hip X-Ray (Signed) Maggy Mercado - 09/14/[address] (Signed) Kasia Garza - 09/14/[address] (Signed) Kasia Garza - 09/14/22 Chest X-Ray (Signed) Maggy Mercado - 09/14/22 [facility] [address] [address] [address] Scan Report Signed Patient: Saleem Graham MR#: [id number] : 1945 Acct:[id number] Age/Sex: 78 / F Date of Service: 09/20/23 Loc: ED Accession Number: [id number] Procedure: CT angio head and neck Ordering Provider: Patricia Stanford D.O. PROCEDURE: CT ANGIO HEAD AND NECK INDICATIONS: altered, unresponsive TECHNIQUE: After the administration of intravenous contrast, 1 mm thick sections acquired from the aortic arch through the [place]. 3-dimensional sayiwad-zjfomtjzx-uhbczfpzib (MIP) and/or volume rendering reformats were acquired of the central intracranial vasculature and neck separately. For radiation dose reduction, the following was used: automated exposure control, adjustment of mA and/or kV according to patient size. COMPARISON: None. FINDINGS: Image quality: Diagnostic. BRAIN: CSF spaces: Ventricles are normal in size and shape. Basal cisterns are patent. No extra-axial fluid collections. Brain: No significant abnormality of the brain can be seen. Skull and face: Calvarium and facial bones appear intact, without suspicious lesions. Orbits appear normal. Sinuses: Sinuses and mastoids are clear. HEAD CT ANGIOGRAPHY: Anterior circulation: Moderate atherosclerotic plaques of the intracranial ICAs without high-grade stenosis.. The flow within the paired anterior cerebral arteries is normal and symmetric. There is a large vessel occlusion within the proximal left M2 segment (series 2 images 83 through 87). The anterior communicating artery is seen. No aneurysms are seen. Posterior circulation: Visualized portions of the vertebral arteries demonstrate normal caliber, and join to form a normal appearing basilar artery. Large contribution of the right [employer]. Flow within the posterior cerebral arteries is normal and symmetric. No aneurysms are seen. NECK CT ANGIOGRAPHY: Carotid system: The great vessels demonstrate a bone anatomy as they arise from the aortic arch with atherosclerotic calcifications. The origins of the common carotid arteries appear patent. The common carotid arteries demonstrate normal caliber and courses. Coarse calcifications of the bilateral carotid bulbs. There is moderate, approximately 50 percent stenosis of the right proximal ICA. No stenosis of the left ICA. Posterior circulation: The origins of the vertebral arteries both appear widely patent. The more superior extracranial portions of both vertebral arteries also demonstrate normal courses and calibers. They join to form a normal appearing basilar artery. Soft tissues: Visualized neck soft tissues demonstrate no suspicious abnormalities. Thyroid gland is heterogeneous with multiple subcentimeter nodules. Bones: No suspicious bony lesions. Multilevel degenerative changes of the cervical spine. Grade 1 anterolisthesis of C7 on T1.. 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 Atherosclerotic calcifications in approximately 50 percent stenosis of the right proximal ICA. Otherwise, no significant abnormality is seen within the arteries of the neck. Any quantitative measurements of stenosis were performed using NASCET criteria. Findings were discussed with Dr. Stanford at 8:35 a.m. On 09/20/2023. Dictated by: James Camara M.D. on 09/20/2023 at 8:36 Approved by: James Camara M.D. on 09/20/2023 at 8:43 ECG Data Attestation: I personally reviewed and interpreted this ECG as follows: Interpretation: Sinus bradycardia first-degree AV block rate of 53 KS 284 QRS is [address] elevation depression noted. MDM Narrative Medical decision making narrative: 78-year-old female presents with altered mental status. Pinpoint pupils recent femur fracture on multiple medications for bipolar disorder as well as narcotic pain medication, patient is also anticoagulated with multiple strokes in the past. Unknown patient's prior deficits but does seem to have some weakness on the right compared to left did have some localizing movement on the left side. Patient did receive Narcan 0.1 mg then 0.4 mg x 2 and did have an improvement in mentation and tried to pull off her end-tidal CO2 monitor. She has been maintaining her O2 sat. She does seem that have some droop on the right compared to left. Last known normal was 11:00 p.m. last night. She has had pretty significant strokes in the past. Spoke with her son who notes her topiramate has been increased by 25 mg 2 weeks ago after being taper down over the past 6 months, she has recently been on pain medications and he thinks maybe a little bit too much for her. He also noted her blood pressures been more normal was typically a systolic in the 170s. He states she has a baseline tremor which is attributed to prior strokes and that she seemed to aspirate on her soup last night, could not lift either 1 of her legs very well in his had trouble swallowing recently. He did confirm she is DNR/DNI limited interventions. Labs show normal white count hemoglobin 10 platelets of 228. INR today is 2. Chemistry shows a creatinine of 3.37 significantly elevated from the 3rd which was 0.85 and she is ranged between 1.49. Sodium is 140 potassium 5.5, chloride 111 with a CO2 of 21 and a GFR of 13. Calcium is 9 4 with normal LFTs, troponin is 0.020, TSH is in normal range as well as prolactin 11.7. Patient had Gamino catheter placed does have cloudy urine. UA positive for nitrates, 3+ leuks, 3200 WBCs many bacteria. Urine tox is negative. ABG shows a pH of 7.34, CO2 of 32, PO2 of 96 with a bicarb of 17. Spoke with [facility], neurology: Dr. Portillo. Feels patient has potential candidate would recommend transfer at this time. We will reach out to family to confirm that they are okay with continuing with treatment but will continue forward at this time. Attempted to call sign on cell phone, family friend is in the room they also attempted to reach him he is reported driving back. Spoke with patient's son Enoch Graham, after discussion he elects for transfer to see if patient would be a candidate to try to potentially return to improved mentation inability to eat and swallow independently. We did discuss alternatives are not treat, although it her if she stated her current baseline she would likely require trach and/or PEG. Did discuss with patient they are allowed to stop the process if they wish to change her to comfort measures or decrease in the level of intervention. We did discuss that she would be intubated for the procedure at minimum require an ICU stay. Son is aware airlift is on their way. He is currently in [place]. Spoke with Dr. Hardin, follow up call to review medications. Sons phone number was relayed. Critical Care Time Critical Care Time Critical Care Time: Yes Total Critical Care Time: 45 Attestation: The high probability of a clinically significant, sudden or life threatening deterioration of the [cardiac, pulm] system(s) required my full and direct attention, intervention and personal management. The aggregate critical care time was [] minutes. This time is in addition to time spent performing reported procedures but includes the following: [x] Data Review and interpretation [x] Patient assessment and monitoring of vital signs [x] Documentation [x] Medication orders and management Discharge Plan Departure Patient Disposition: [facility] Clinical Impression: Acute CVA (cerebrovascular accident), Acute kidney injury Prescriptions: No Action acetaminophen 500 mg Capsule 500 mg PO DAILY multivitamin Tablet 1 tab PO DAILY atorvastatin [Lipitor] 40 mg Tablet 40 mg PO BEDTIME sennosides [Senokot] 8.6 mg Tablet 8.6 mg PO DAILY PRN (Reason: Constipation) quetiapine [Seroquel] 300 mg Tablet 300 mg PO BEDTIME polyethylene glycol 3350 [Miralax] 17 gram Powder In Packet 17 g PO DAILY PRN (Reason: Constipation) Coricidin HBP Chest Robert-Cough 10-200 mg Capsule 1 tab-cap PO BID PRN (Reason: Cough) donepezil [Aricept] 10 mg Tablet 10 mg PO BEDTIME warfarin 2.5 mg Tablet 2.5 mg PO WEEKLY Rx Instructions: on tuesdays (all other days are 5mg) amlodipine [Norvasc] 5 mg Tablet 7.5 mg PO BEDTIME biotin 10,000 mcg Capsule 10,000 mcg PO BEDTIME lisinopril [Zestril] 10 mg Tablet 20 mg PO DAILY lisinopril [Zestril] 10 mg Tablet 10 mg PO BEDTIME warfarin 5 mg Tablet 5 mg PO [facility] Rx Instructions: Wed/Wed//Wed/Sat/Sun (takes 2.5mg on tuesdays) magnesium sulfate (bulk) [Epsom Salt] 100 % Crystals 1 applic miscellaneous 3XW PRN (Reason: Pain (Scale Score 4-6)) metoprolol succinate [Toprol XL] 25 mg Tablet Extended Release 24 Hr 25 mg PO DAILY estradiol [Estrace] 0.01 % (0.1 mg/gram) Cream 1 g VAGINAL 3XW Rx Instructions: wed/wed/wednesday topiramate [Topamax] 100 mg Tablet 100 mg PO BEDTIME glucosamine-chondroitin [Osteo Bi-Flex] 250-200 mg Tablet 1 tab PO DAILY Rx Instructions: in the evening aripiprazole [Abilify] 10 mg Tablet 10 mg PO BEDTIME cranberry extract 250 mg Tablet 500 mg PO DAILY phenyleph-shark [id number] Cream 1 applic topical Q6H PRN (Reason: Itching) calcium carbonate-vit D3-min 600 mg calcium- 400 unit Tablet 1 tab PO DAILY diclofenac sodium [Voltaren Arthritis Pain] 1 % Gel 2 g TOPICAL QID PRN (Reason: Pain (Scale Score 4-6)) Rx Instructions: apply to single elbow, wrist or hand; for hand includes palm/fingers/back of hand cholecalciferol (vitamin D3) 50 mcg (2,000 unit) Tablet 50 mcg PO DAILY tea tree oil 100 % Oil 1 ea TOPICAL BID Rx Instructions: apply to both feet melatonin 5 mg Capsule 5 mg PO BEDTIME Rx Instructions: take with 3mg to = 8mg acidophilus-pectin, citrus 100 million cell-10 mg Capsule 2 cap PO BID guaifenesin [Mucinex] 600 mg Tablet Extended Release 12hr 600 mg PO BID PRN (Reason: Cough) turmeric 400 mg Capsule 2,000 mg PO DAILY melatonin 3 mg Capsule 3 mg PO BEDTIME Rx Instructions: take with 5mg to = 8mg d-mannose 500 mg Capsule 1,000 mg PO BID [place] 3-6-9 1,200 mg capsule 1,200 mg PO BEDTIME enoxaparin [Lovenox] 40 mg/0.4 mL Syringe 40 mg SUBCUT DAILY Qty: 4 0RF Rx Instructions: until INR in 2-3 range hydrocodone-acetaminophen 5-325 mg Tablet 1 tab PO Q4H PRN (Reason: Pain, Moderate) Qty: 30 0RF Referrals: Mazin Alvarez MD [Primary Care Provider] - Stand Alone Forms: Naloxone Standing Order RUSTY
[2023-09-20 07:50] LABS: Add Manual Diff / Slide Review NO; Basophils Absolute Auto 0 /uL (0-100); Basophils Percent Auto 0.8 % (0-2); Eosinophils Absolute Auto 100 /uL (0-450); Eosinophils Percent Auto 1.2 % (2-4); Hematocrit 32.4 % (36-46); Hemoglobin 10.6 g/dL (12.0-16.0); Lymphocytes Absolute Auto 1100 /uL (1100-4500); Lymphocytes Percent Auto 19.1 % (25-40); Mean Corpuscular HGB Conc 32.7 % (30-36); Mean Corpuscular Hemoglobin 30.5 PG (26-34); Mean Corpuscular Volume 93.2 fL (80-100); Monocytes Absolute Auto 600 /uL (0-900); Monocytes Percent Auto 10.4 % (3-14); Neutrophils Absolute Auto 4100 /uL (1500-7000); Neutrophils Percent Auto 68.5 % (50-75); Platelet Count 228 X10^3/uL (150-400); Red Blood Cell Count 3.47 X10^6/uL (4.0-5.2); Red Cell Distribution Width 15.9 % (11.6-14.8)
[2023-09-20] MEDS: NALOXONE 0.4 MG/ML VIAL 0.1 MG IV (07:55)
[2023-09-20 07:57] LABS: Prothrombin Time 23.5 SECONDS (9.4-12.5)
[2023-09-20 08:00] LABS: PTT Partial Thromboplastin Tim 40 SECONDS (25.1-36.5)
[2023-09-20] MEDS: NALOXONE 0.4 MG/ML VIAL IV ×2 (08:00→08:09)
[2023-09-20 08:03] LABS: Acetaminophen < 10 ug/mL (10-30); Alanine Aminotransferase 14 IU/L (<35); Albumin 3.9 g/dL (3.5-5.0); Albumin Globulin Ratio 1.1 (1.0-2.8); Alkaline Phosphatase 116 U/L (38-126); Aspartate Aminotransferase 19 IU/L (14-36); BUN Creatinine Ratio 21.4 (6-22); Bilirubin Total 0.6 mg/dL (0.2-1.3); Blood Urea Nitrogen 72 mg/dL (7-17); Calcium 9.4 mg/dL (8.4-10.2); Carbon Dioxide 21 mmol/L (22-32); Chloride 111 mmol/L (98-107); Creatine Kinase 63 U/L (30-135); Estimated Glomerular Filt Rate 13 mL/min (>60); Ethanol (ETOH) < 10 mg/dL; Globulin 3.4 g/dL (1.7-4.1); Glucose 101 mg/dL (80-110); HEMOLYSIS < 15 (0-50); Lactate (Lactic Acid) 1.3 mmol/L (0.7-2.1); Salicylate < 1.0 mg/dL (<20); Sodium 140 mmol/L (137-145); Total Protein 7.3 g/dL (6.3-8.2)
[2023-09-20 08:04] LABS: Potassium 5.5 mmol/L (3.4-5.1)
[2023-09-20] MEDS: SODIUM CHLORIDE 0.9% 1,000 ML 150 ML IV (08:09)
[2023-09-20 08:21] LABS: Prolactin 11.7 ng/mL (3.0-18.6)
[2023-09-20 08:33] LABS: Thyroid Stimulating Hormone 2.05 uIU/mL (0.47-4.68)
[2023-09-20] MEDS: SODIUM CHLORIDE 0.9% 1,000 ML 1000 ML IV (08:43)
[2023-09-20 08:44] LABS: UR Morphine/Opiate cutoff 300 Negative (Negative); Ur Creatinine Normal (Normal); Ur Specific Gravity Normal (Normal); Urine Amphetamines Negative (Negative); Urine Barbiturates Negative (Negative); Urine Benzodiazepines Negative (Negative); Urine Cocaine Negative (Negative); Urine MDMA Negative (Negative); Urine Methadone Negative (Negative); Urine Methamphetamines Negative (Negative); Urine Oxycodone Negative (Negative); Urine Phencyclidine Negative (Negative); Urine Tetrahydrocannabinol Negative (Negative); Urine Tricyclic Antidepressant Negative (Negative); Urine pH Normal (Normal)
[2023-09-20 08:48] LABS: Appearance Urine UA Cloudy; Color Urine UA YELLOW; Protein Urine UA 1+ (Negative); Specific Gravity Urine UA 1.015 (1.000-1.035)
[2023-09-20 08:49] LABS: Glucose Urine UA NEGATIVE (Negative); Ketones Urine UA NEGATIVE (NEGATIVE); Occult Blood Urine UA NEGATIVE (Negative)
[2023-09-20 08:50] LABS: Bilirubin Urine UA Negative (NEGATIVE); Leukocyte Esterase Urine UA 3+ (NEGATIVE); Nitrite Urine UA POSITIVE (Negative); Urine Volume 10mL (spun); Urobilinogen Urine UA Normal E.U./dL (0.2)
[2023-09-20 08:51] LABS: Bacteria Urine Many (>30); RBC Urine None Seen (0-5/HPF); Squamous Epithelial Cell Urine 0-1 /HPF (0-5/HPF); WBC Urine 30-100/HPF (0-5/HPF)
[2023-09-20 08:58] LABS: Ammonia (NH3) < 9 umol/L (9-30)
[2023-09-20 09:05] LABS: PCO2 ABG 32.5 mmHg (35-45); PO2 ABG 96 mmHg (80-100); pH ABG 7.34 (7.35-7.45)
[2023-09-20 09:06] LABS: Allen Test for ABG Passed? Yes, Passed; Blood Gas Collection Site Right Radial; Fractionated Inspired Oxygen 21; HCO3 ABG 18 mmol/L (23-27); Oxygen Saturation ABG 97 % (95-100); TCO2 ABG 19 mmol/L (23-27)
[2023-09-20] MEDS: cefTRIAXone 2,000 MG in SODIUM CHLORIDE 0.9% 100 ML 200 MG IV (09:48)
[2023-09-21 16:34] LABS: Osmolality, Serum 324 mOsmol/kg (280-301)
== END 2023-09-20 10:00 | disposition short-term general hospital (02) ==
PROVIDERS: Emergency Provider Emergency Medicine; PCP Internal Medicine
DX: I63.9 Cerebral infarction, unspecified (principal); N17.9 Acute kidney failure, unspecified
CPT/HCPCS: 36415; 36600; 70450; 70496; 70498; 80053; 80305; 80320; 80329; 81001; 82140; 82550; 82805; 82962; 83605; 83930; 84146; 84443; 84484; 85025; 85610; 85730; 87040; 87077; 87086; 87186; 93005; 93010; 96361; 96374; 96375; 99285; 99291; G0480; J0696; J2310